=== PATIENT | female | born 1935 | race Caucasian/White ===

== ENCOUNTER 2019-09-19 15:51 | Outpatient (CLI) | payer MEDICARE, OTHER, SELFPAY ==
--- NOTE | ~2019-09-19 | XR_ITS ---
XR hip LT 2V w AP pelvis DATE: 09/19/2019 16:43 INDICATION: Low back pain and left hip pain for one week. No known injury. TECHNIQUE: AP pelvis. AP, lateral and crosstable lateral views of left hip. COMPARISON: None FINDINGS: The pubic symphysis and sacroiliac joints are intact. No fracture or bone destruction of th e pelvis is evident. Approximately 9 mm sclerotic lesion of the right ilium is likely a bone island. No suspicious osteolytic or osteoblastic lesions are noted. No fracture, dislocation, avascular necrosis or bone destruction of the left hip. Hip joint spaces ar e symmetric and relatively well preserved. 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 Otherwise moderate osteopenia. 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
== END 2019-09-19 15:52 | disposition home or self-care (01) ==
PROVIDERS: PCP Internal Medicine; Visit Provider Internal Medicine
DX: M85.852 Other specified disorders of bone density and structure, left thigh (principal)
CPT/HCPCS: 73502; 73521; J2704

== ENCOUNTER 2020-03-10 10:39 | Outpatient (CLI) | payer MEDICARE, OTHER, SELFPAY ==
[2020-03-10 11:19] LABS: Alanine Aminotransferase 19 U/L (4-35); Albumin Level 4.4 g/dL (3.5-5.1); Alkaline Phosphatase 93 U/L (38-126); Aspartate Amino Transferase 30 U/L (14-36); Bilirubin,Total 0.6 mg/dL (0.2-1.3); Blood Urea Nitrogen 12 mg/dL (7-17); Calcium 9.5 mg/dL (8.4-10.2); Carbon Dioxide 30 mmol/L (22-30); Chloride 102 mmol/L (98-107); Estimated Glomerular Filt Rate > 60; Glucose 84 mg/dL (65-105); Potassium 3.7 mmol/L (3.4-5.0); Sodium 138 mmol/L (137-145)
== END 2020-03-10 10:40 | disposition home or self-care (01) ==
PROVIDERS: PCP Internal Medicine; Visit Provider Internal Medicine
DX: E03.8 Other specified hypothyroidism (principal); I10 Essential (primary) hypertension
CPT/HCPCS: 36415; 80053; 84443

== ENCOUNTER 2020-09-10 10:13 | Outpatient (CLI) | payer MEDICARE, OTHER, SELFPAY ==
[2020-09-10 11:08] LABS: Cholesterol 238 mg/dL (0-200); HDL Direct 83 mg/dL; Magnesium 2.4 mg/dL (1.6-2.3); Triglycerides 108 mg/dL (<150)
[2020-09-10 11:19] LABS: LDL Cholesterol Direct 128 mg/dL
[2020-09-10 11:46] LABS: Vitamin D 25 Hydroxy 27.7 ng/mL
== END 2020-09-10 10:14 | disposition home or self-care (01) ==
PROVIDERS: PCP Internal Medicine; Visit Provider Nurse Practitioner
DX: E03.9 Hypothyroidism, unspecified (principal); E55.9 Vitamin D deficiency, unspecified; E78.00 Pure hypercholesterolemia, unspecified; Z51.81 Encounter for therapeutic drug level monitoring
CPT/HCPCS: 36415; 80061; 82306; 83735; 84443

== ENCOUNTER 2021-01-20 15:28 | Outpatient (CLI) | payer MEDICARE, OTHER, SELFPAY ==
[2021-01-20 16:45] LABS: Total Triiodothyronine (T3) 0.93 NG/ML (0.97-1.69)
[2021-01-20 17:28] LABS: Free T4 Free Thyroxine 1.36 ng/mL (0.78-2.19)
== END 2021-01-20 15:29 | disposition home or self-care (01) ==
PROVIDERS: PCP Internal Medicine; Visit Provider Internal Medicine
DX: E03.9 Hypothyroidism, unspecified (principal)
CPT/HCPCS: 36415; 84439; 84443; 84480

== ENCOUNTER 2021-04-06 09:59 | Outpatient (CLI) | payer MEDICARE, OTHER, SELFPAY ==
[2021-04-06 10:49] LABS: Anion Gap 7 mmol/L (8-16); Blood Urea Nitrogen 12 mg/dL (7-17); Calcium 9.6 mg/dL (8.4-10.2); Carbon Dioxide 28 mmol/L (22-30); Chloride 106 mmol/L (98-107); Estimated Glomerular Filt Rate > 60; Glucose 93 mg/dL (65-105); Potassium 3.5 mmol/L (3.4-5.0); Sodium 141 mmol/L (137-145)
[2021-04-06 11:18] LABS: Thyroid Stimulating Hormone 0.662 uIU/mL (0.465-4.680)
[2021-04-06 11:51] LABS: Vitamin D 25 Hydroxy 37.3 ng/mL
== END 2021-04-06 10:00 | disposition home or self-care (01) ==
LOC: ANHLAB 10:03
PROVIDERS: PCP Internal Medicine; Visit Provider Internal Medicine
DX: E03.9 Hypothyroidism, unspecified (principal); I10 Essential (primary) hypertension; E55.9 Vitamin D deficiency, unspecified
CPT/HCPCS: 36415; 80048; 82306; 84443

== ENCOUNTER 2021-09-22 09:34 | Outpatient (CLI) | payer MEDICARE, OTHER, SELFPAY ==
--- NOTE | ~2021-09-22 | MM_ITS ---
EXAMINATION: MM screening hieu BI w iggy HISTORY: Screening mammogram TECHNIQUE: Craniocaudal and mediolateral oblique 3-D tomosynthesis images were obtained and synthetic 2-D images were generated. CAD analysis was submitted and interpreted. COMPARISON: [id number], 08/16/2017, 08/15/2016 BREAST PARENCHYMAL COMPOSITION: The breasts are heterogeneously dense, which may obscure small masses . FINDINGS: Scattered benign-appearing calcifications are present. There is no evidence of suspicious m ass, calcification, or architectural distortion to suggest malignancy in either breast. There has bee n no suspicious interval change. IMPRESSION: 1. No mammographic evidence of malignancy. 2. Recommend routine screening mammography while the patient remains in good health. BI-RADS Category 2: Benign finding(s). Reviewed, dictated and finalized at location A. NT COORDINATOR IMPRESSION: 1. No mammographic evidence of malignancy. 2. Recommend routine screening mammography while the patient remains in good he alth. BI-RADS Category 2: Benign finding(s).
== END 2021-09-22 09:35 | disposition home or self-care (01) ==
LOC: ANHIMG 09:38
PROVIDERS: PCP Internal Medicine; Visit Provider Internal Medicine
DX: Z12.31 Encounter for screening mammogram for malignant neoplasm of breast (principal)
CPT/HCPCS: 77063; 77067

== ENCOUNTER 2021-11-08 10:08 | Outpatient (CLI) | payer MEDICARE, OTHER, SELFPAY ==
[2021-11-08 10:54] LABS: Alanine Aminotransferase 17 U/L (4-35); Albumin Level 4.6 g/dL (3.5-5.1); Alkaline Phosphatase 126 U/L (38-126); Anion Gap 9 mmol/L (8-16); Aspartate Amino Transferase 28 U/L (14-36); Bilirubin,Total 0.7 mg/dL (0.2-1.3); Blood Urea Nitrogen 12 mg/dL (7-17); Calcium 9.5 mg/dL (8.4-10.2); Carbon Dioxide 29 mmol/L (22-30); Chloride 100 mmol/L (98-107); Cholesterol 238 mg/dL (0-200); Estimated Glomerular Filt Rate > 60; Glucose 106 mg/dL (65-110); HDL Direct 90 mg/dL; Potassium 3.6 mmol/L (3.4-5.0); Sodium 138 mmol/L (137-145); Triglycerides 123 mg/dL (<150)
[2021-11-08 11:05] LABS: LDL Cholesterol Direct 118 mg/dL
[2021-11-08 11:21] LABS: Total Triiodothyronine (T3) 1.05 NG/ML (0.97-1.69)
[2021-11-08 11:43] LABS: Free T4 Free Thyroxine 1.67 ng/mL (0.78-2.19); Vitamin D 25 Hydroxy 34.3 ng/mL
== END 2021-11-08 10:09 | disposition home or self-care (01) ==
PROVIDERS: PCP Internal Medicine; Visit Provider Nurse Practitioner
DX: E03.9 Hypothyroidism, unspecified (principal); F32.9 Major depressive disorder, single episode, unspecified; E55.9 Vitamin D deficiency, unspecified; E78.00 Pure hypercholesterolemia, unspecified
CPT/HCPCS: 36415; 80053; 80061; 82306; 84439; 84443; 84480

== ENCOUNTER 2021-11-30 15:05 | Outpatient (CLI) | payer MEDICARE, OTHER, SELFPAY ==
--- NOTE | ~2021-11-30 | XR_ITS ---
XR chest 2V DATE: 11/30/2021 15:27 INDICATION: Dry cough for 3 months TECHNIQUE: 2 views COMPARISON: None FINDINGS: There is cardiomegaly. No hilar or mediastinal enlargement. There is bilateral pulmonary hyperinflation. No pulmonary infiltrate or consolidation, pulmonary vas cular congestion, pleural effusion or pneumothorax. There is dextroscoliosis of the thoracic spine. Diffuse osteopenia. IMPRESSION: Bilateral hyperinflation Cardiomegaly Osteopenia, scoliosis Reviewed, dictated and finalized at location B. NG COORDINATOR
== END 2021-11-30 15:06 | disposition home or self-care (01) ==
LOC: ANHIMG 15:11
PROVIDERS: PCP Internal Medicine; Visit Provider Internal Medicine
DX: R05.9 Cough, unspecified (principal); R91.8 Other nonspecific abnormal finding of lung field; I51.7 Cardiomegaly; M85.88 Other specified disorders of bone density and structure, other site; M41.9 Scoliosis, unspecified
CPT/HCPCS: 71046

== ENCOUNTER 2022-06-03 10:35 | Outpatient (CLI) | payer MEDICARE, OTHER, SELFPAY ==
[2022-06-03 11:51] LABS: Alanine Aminotransferase 20 U/L (6-35); Albumin Level 4.6 g/dL (3.5-5.1); Alkaline Phosphatase 108 U/L (38-126); Anion Gap 10 mmol/L (8-16); Aspartate Amino Transferase 30 U/L (14-36); Bilirubin,Total 0.5 mg/dL (0.2-1.3); Blood Urea Nitrogen 14 mg/dL (7-17); Calcium 9.6 mg/dL (8.4-10.2); Carbon Dioxide 28 mmol/L (22-30); Chloride 100 mmol/L (98-107); Estimated Glomerular Filt Rate > 60; Glucose 91 mg/dL (65-110); Potassium 3.4 mmol/L (3.4-5.0); Sodium 138 mmol/L (137-145)
[2022-06-03 12:20] LABS: Thyroid Stimulating Hormone 0.164 uIU/mL (0.465-4.680)
[2022-06-03 12:29] LABS: Vitamin D 25 Hydroxy 42.9 ng/mL
== END 2022-06-03 10:36 | disposition home or self-care (01) ==
LOC: ANHLAB 10:38
PROVIDERS: PCP Internal Medicine; Visit Provider Internal Medicine
DX: R00.2 Palpitations (principal); I10 Essential (primary) hypertension; E55.9 Vitamin D deficiency, unspecified; E03.9 Hypothyroidism, unspecified
CPT/HCPCS: 36415; 80053; 82306; 84443

== ENCOUNTER 2022-12-12 13:55 | Outpatient (CLI) | payer MEDICARE, OTHER, SELFPAY ==
[2022-12-12 15:34] LABS: Alanine Aminotransferase 20 U/L (6-35); Albumin Level 4.4 g/dL (3.5-5.1); Alkaline Phosphatase 106 U/L (38-126); Anion Gap 5 mmol/L (8-16); Aspartate Amino Transferase 46 U/L (14-36); Bilirubin,Total 0.6 mg/dL (0.2-1.3); Blood Urea Nitrogen 14 mg/dL (7-17); Carbon Dioxide 30 mmol/L (22-30); Chloride 105 mmol/L (98-107); Estimated Glomerular Filt Rate > 60; Glucose 102 mg/dL (65-110); Potassium 3.5 mmol/L (3.4-5.0); Sodium 140 mmol/L (137-145)
[2022-12-12 16:06] LABS: Thyroid Stimulating Hormone 0.337 uIU/mL (0.465-4.680)
== END 2022-12-12 13:56 | disposition home or self-care (01) ==
LOC: ANHWCLAB 13:57
PROVIDERS: PCP Internal Medicine; Visit Provider Nurse Practitioner
DX: E78.5 Hyperlipidemia, unspecified (principal); E03.9 Hypothyroidism, unspecified
CPT/HCPCS: 36415; 80053; 84439; 84443; 84480

== ENCOUNTER 2023-01-09 09:24 | Outpatient (CLI) | payer MEDICARE, OTHER, SELFPAY ==
--- NOTE | ~2023-01-09 | MM_ITS ---
EXAMINATION: MM screening hieu BI w iggy HISTORY: Screening mammogram TECHNIQUE: Craniocaudal and mediolateral oblique 3-D tomosynthesis images were obtained and synthetic 2-D images were generated. CAD analysis was submitted and interpreted. COMPARISON: 09/18/2021, 08/18/2018, 08/16/2017 bilateral screening mammogram examinations BREAST PARENCHYMAL COMPOSITION: The breasts are heterogeneously dense, which may obscure small masses . FINDINGS: There is no evidence of suspicious mass, calcification, or architectural distortion to sugg est malignancy in either breast. There has been no suspicious interval change. IMPRESSION: 1. No mammographic evidence of malignancy. 2. Recommend routine screening mammography in one year. BI-RADS Category 1: Negative Reviewed, dictated and finalized at location A.
== END 2023-01-09 09:25 | disposition home or self-care (01) ==
LOC: ANHIMG 09:27
PROVIDERS: PCP Internal Medicine; Visit Provider Internal Medicine
DX: Z12.31 Encounter for screening mammogram for malignant neoplasm of breast (principal)
CPT/HCPCS: 77063; 77067

== ENCOUNTER 2023-01-26 13:50 | Outpatient (CLI) | payer MEDICARE, OTHER, SELFPAY ==
--- NOTE | ~2023-01-26 | DEXA_ITS ---
Bone Density Report Name: MUNDO FAIRCHILD Age: 87 Sex: Female Ethnicity: White Date of : 1935 Indication: postmenopausal; screening for osteoporosis; height loss; hysterectomy; Referring Provider: ZENAIDA SCOTT Study: Bone densitometry was performed. Exam Date: January 26, 2023 Accession number: [id number] Bone Density: Region BMD T-score Z-score Classification AP Spine(L1, L2) 0.728 -2.3 0.4 Osteopenia Femoral Neck (Left) 0.509 -3.1 -0.5 Osteoporosis Total Hip (Left) 0.609 -2.7 -0.4 Osteoporosis Femoral Neck (Right) 0.556 -2.6 -0.1 Osteoporosis Total Hip (Right) 0.708 -1.9 0.4 Osteopenia Total Hip Mean 0.659 -2.3 0.0 Osteopenia World Health Organization criteria for BMD impression classify patients as: Normal (T-score at or above -1.0), Osteopenia (T-score between -1.0 and -2.5), or Osteoporosis (T-score at or below -2.5). 10-year Fracture Risk: FRAX not reported because: Some T-score for Spine Total or Hip Total or Femoral Neck at or below -2.5 Clinical Information Provided by Patient: Has used the following medications: Vitamin D Has the following medical conditions: Hysterectomy Patient maximum height was 64 Menopause Age: 44 Onset of menses at age 14 Number of children 4 Impression: The patient has osteoporosis, based on the Left Femoral Neck T-score. Discussion: INCREASED RISK OF FRACTURE. BONE DENSITY IS UNDESIRABLY LOW AT ONE OR MORE SKELETAL SITES, CONSISTENT WITH POSTMENOPAUSAL OSTEOPOROSIS. This patient's lowest T-score meets the World Health Organization's (WHO) criteria for osteoporosis at one or more sites (T-score -2.5 or below). In untreated patients, the risk of osteoporotic fracture increases approximately two-fold for each 1.0 SD decrease in T-score. Low bone density is not the only risk factor for fracture; also consider factors such as patient's age, frailty or poor health, risk of falling, risk of injury, previous osteoporotic fracture, family history of osteoporosis, cigarette smoking, low body weight, etc. Not everyone with low bone mineral density has osteoporosis; osteomalacia and other metabolic bone disorders should also be considered. Patients who have osteoporosis should be evaluated for specific diseases and conditions (secondary causes) that may cause or contribute to bone loss. The [place] [employer]ocrinologists (AACE) and National Osteoporosis Foundation (NOF) recommend pharmacologic intervention for all postmenopausal women whose T-score is in this range. The patient should follow a healthful lifestyle (good nutrition with adequate calcium and vitamin D, and appropriate weight-bearing exercise). Follow-Up: Consider a repeat BMD and Vertebral Fracture Assessment (VFA) exam in 2 years or sooner if medically necessary, to reassess
== END 2023-01-26 13:51 | disposition home or self-care (01) ==
PROVIDERS: PCP Internal Medicine; Visit Provider Internal Medicine
DX: M81.0 Age-related osteoporosis without current pathological fracture (principal); M85.88 Other specified disorders of bone density and structure, other site; M85.851 Other specified disorders of bone density and structure, right thigh
CPT/HCPCS: 77080

== ENCOUNTER 2023-06-19 13:44 | Outpatient (CLI) | payer MEDICARE, OTHER, SELFPAY ==
[2023-06-19 18:50] LABS: Thyroid Stimulating Hormone 0.798 uIU/mL (0.465-4.680)
[2023-06-19 19:06] LABS: Free T4 Free Thyroxine 1.68 ng/mL (0.78-2.19)
== END 2023-06-19 13:45 | disposition home or self-care (01) ==
LOC: ANHGOSHLAB 13:47
PROVIDERS: PCP Family Medicine; Visit Provider Nurse Practitioner Family
DX: E03.9 Hypothyroidism, unspecified (principal)
CPT/HCPCS: 36415; 84439; 84443

== ENCOUNTER 2023-10-24 15:05 | Outpatient (CLI) | payer MEDICARE, OTHER, SELFPAY ==
[2023-10-24 19:24] LABS: Alanine Aminotransferase 16 U/L (6-35); Albumin Level 4.1 g/dL (3.5-5.1); Alkaline Phosphatase 98 U/L (38-126); Anion Gap 9 mmol/L (8-16); Aspartate Amino Transferase 38 U/L (14-36); Bilirubin,Total 0.5 mg/dL (0.2-1.3); Blood Urea Nitrogen 21 mg/dL (7-17); Calcium 9.6 mg/dL (8.4-10.2); Carbon Dioxide 27 mmol/L (22-30); Chloride 102 mmol/L (98-107); Cholesterol 217 mg/dL (0-200); Estimated Glomerular Filt Rate > 60; Glucose 95 mg/dL (65-110); HDL Direct 71 mg/dL; Potassium 3.9 mmol/L (3.4-5.0); Sodium 138 mmol/L (137-145); Triglycerides 197 mg/dL (<150)
[2023-10-24 19:32] LABS: Basophils Percent Auto 0.6 % (0.2-1.2); Eosinophils Absolute Auto 0.1 K/mm3 (0-0.3); Eosinophils Percent Auto 1.9 % (0-4.4); Hematocrit 40.9 % (37.0-47.0); Hemoglobin 13.4 g/dL (12.0-15.0); Immature Granulocyte Absolute 0.02 K/mm3 (0.00-0.031); Immature Granulocyte Percent A 0.3 % (0-0.5); Lymphocytes Absolute Auto 1.58 K/mm3 (0.9-3.2); Lymphocytes Percent Auto 24.6 % (18.3-44.2); Mean Corpuscular HGB Conc 32.8 g/dl (32-36); Mean Corpuscular Hemoglobin 32.5 pg (26-34); Mean Corpuscular Volume 99.3 fl (80-100); Mean Platelet Volume 9.9 fl (7.4-10.4); Monocytes Absolute Auto 0.7 K/mm3 (0.1-0.6); Monocytes Percent Auto 11.5 % (2.6-8.5); Neutrophils Absolute Auto 3.9 K/mm3 (1.3-6.7); Neutrophils Percent Auto 61.1 % (45.5-73.1); Platelet Count Result 276 k/mm3 (150-375); Red Blood Count 4.12 M/mm3 (4.2-5.4); Red Cell Distribution Width 13.2 % (11.5-14.5); White Blood Count 6.4 K/mm3 (4.5-10.0)
[2023-10-24 19:35] LABS: LDL Cholesterol Direct 101 mg/dL
[2023-10-24 19:45] LABS: Free T4 Free Thyroxine 1.67 ng/mL (0.78-2.19); Vitamin D 25 Hydroxy 25.8 ng/mL
== END 2023-10-24 15:06 | disposition home or self-care (01) ==
LOC: ANHGOSHLAB 15:08
PROVIDERS: PCP Family Medicine; Visit Provider Nurse Practitioner Family
DX: E03.9 Hypothyroidism, unspecified (principal); E55.9 Vitamin D deficiency, unspecified; Z13.0 Encounter for screening for diseases of the blood and blood-forming organs and certain disorders involving the immune mechanism; E78.00 Pure hypercholesterolemia, unspecified; I10 Essential (primary) hypertension
CPT/HCPCS: 36415; 80053; 80061; 82306; 84439; 84443; 85025

== ENCOUNTER 2024-01-18 08:25 | Outpatient (CLI) | payer MEDICARE, OTHER, SELFPAY ==
--- NOTE | ~2024-01-18 | MM_ITS ---
EXAMINATION: MM screening hieu BI w iggy HISTORY: Screening TECHNIQUE: Craniocaudal and mediolateral oblique 3-D tomosynthesis images were obtained and synthetic 2-D images were generated. CAD analysis was submitted and interpreted. COMPARISON: Comparison to multiple prior studies sequentially, with oldest reviewed study dated 07/30. BREAST PARENCHYMAL COMPOSITION: Dense: The breasts are heterogeneously dense, which may obscure small masses FINDINGS: There are focal asymmetries located medially and laterally in the left breast on CC view. T here is no mammographic evidence for malignancy in the right breast. IMPRESSION: 1. Focal left breast asymmetries. 2. Additional mammographic views and possible breast ultrasound are recommended. BI-RADS Category 0: Incomplete: Needs additional imaging evaluation. Reviewed, dictated and finalized at location A. IMPRESSION: 1. Focal left breast asymmetries. 2. Additional mammographic views and possible breast ultrasound are recommended . BI-RADS Category 0: Incomplete: Needs additional imaging evaluation.
== END 2024-01-18 08:26 | disposition home or self-care (01) ==
PROVIDERS: PCP Nurse Practitioner Family; Visit Provider Nurse Practitioner Family
DX: Z12.31 Encounter for screening mammogram for malignant neoplasm of breast (principal); R92.8 Other abnormal and inconclusive findings on diagnostic imaging of breast
CPT/HCPCS: 77063; 77067

== ENCOUNTER 2024-03-05 10:20 | Outpatient (CLI) | payer MEDICARE, OTHER, SELFPAY ==
--- NOTE | ~2024-03-05 | MMUS_ITS ---
EXAMINATION: MM diagnostic hieu LT w iggy, US breast LT complete HISTORY: Focal left mammographic asymmetries reported on 01/18/2024 screening mammogram examination TECHNIQUE: Additional 3-D tomosynthesis images of the left breast were performed and synthetic 2-D im ages were generated. CAD analysis was submitted and interpreted. High resolution complete left breast ultrasound examination including all 4 quadrants and subareolar area was performed. COMPARISON: 01/18/2024 bilateral screening mammogram 09/22/2021 bilateral screening mammogram FINDINGS: MAMMOGRAPHIC FINDINGS: No suspicious mass, architectural distortion, malignant calcification, skin thickening or retraction or significant new finding is noted since 09/22/2021. ULTRASOUND: No suspicious mass or suspicious shadowing is detected. No significant abnormal vascularity. IMPRESSION: 1. No evidence of malignancy 2. Routine annual mammographic screening is recommended BI-RADS Category 1: Negative Reviewed, dictated and finalized at location B. IMPRESSION: 1. No evidence of malignancy 2. Routine annual mammographic screening is recommended BI-RADS Category 1: Negative
== END 2024-03-05 10:21 | disposition home or self-care (01) ==
PROVIDERS: PCP Nurse Practitioner Family; Visit Provider Nurse Practitioner Family
DX: R92.8 Other abnormal and inconclusive findings on diagnostic imaging of breast (principal)
CPT/HCPCS: 76641; 77061; 77065; G0279

== ENCOUNTER 2024-04-11 10:25 | Outpatient (CLI) | payer MEDICARE, OTHER, SELFPAY ==
[2024-04-11 14:30] LABS: Basophils Absolute Auto 0.1 K/mm3 (0.0-0.1); Eosinophils Absolute Auto 0.2 K/mm3 (0-0.3); Eosinophils Percent Auto 4.7 % (0-4.4); Hemoglobin 14.3 g/dL (12.0-15.0); Immature Granulocyte Absolute 0.01 K/mm3 (0.00-0.031); Immature Granulocyte Percent A 0.2 % (0-0.5); Lymphocytes Absolute Auto 1.37 K/mm3 (0.9-3.2); Lymphocytes Percent Auto 26.6 % (18.3-44.2); Mean Corpuscular HGB Conc 33.3 g/dl (32-36); Mean Corpuscular Hemoglobin 32.6 pg (26-34); Mean Corpuscular Volume 97.9 fl (80-100); Mean Platelet Volume 9.9 fl (7.4-10.4); Monocytes Absolute Auto 0.5 K/mm3 (0.1-0.6); Monocytes Percent Auto 9.7 % (2.6-8.5); Neutrophils Percent Auto 57.8 % (45.5-73.1); Platelet Count Result 269 k/mm3 (150-375); Red Blood Count 4.39 M/mm3 (4.2-5.4); Red Cell Distribution Width 13.5 % (11.5-14.5); White Blood Count 5.2 K/mm3 (4.5-10.0)
[2024-04-11 16:30] LABS: Alanine Aminotransferase 16 U/L (6-35); Albumin Level 4.7 g/dL (3.5-5.1); Alkaline Phosphatase 86 U/L (38-126); Anion Gap 8 mmol/L (4-12); Aspartate Amino Transferase 60 U/L (14-36); Bilirubin,Total 0.7 mg/dL (0.2-1.3); Blood Urea Nitrogen 16 mg/dL (7-17); Calcium 9.8 mg/dL (8.4-10.2); Carbon Dioxide 30 mmol/L (22-30); Chloride 102 mmol/L (98-107); Cholesterol 217 mg/dL (0-200); Estimated Glomerular Filt Rate > 60; Glucose 96 mg/dL (65-110); HDL Direct 83 mg/dL; Potassium 3.9 mmol/L (3.4-5.0); Sodium 140 mmol/L (137-145); Triglycerides 136 mg/dL (<150)
[2024-04-11 16:40] LABS: LDL Cholesterol Direct 99 mg/dL
[2024-04-11 18:23] LABS: Iron 188 ug/dL (37-170)
[2024-04-11 18:32] LABS: Percent Iron Saturation 58 % (20-50)
[2024-04-11 20:27] LABS: Vitamin D 25 Hydroxy 31.7 ng/mL
== END 2024-04-11 10:26 | disposition home or self-care (01) ==
PROVIDERS: PCP Nurse Practitioner Family; Visit Provider Nurse Practitioner Family
DX: E03.9 Hypothyroidism, unspecified (principal); E55.9 Vitamin D deficiency, unspecified; E78.00 Pure hypercholesterolemia, unspecified; F32.4 Major depressive disorder, single episode, in partial remission; G43.909 Migraine, unspecified, not intractable, without status migrainosus; M54.9 Dorsalgia, unspecified; L81.9 Disorder of pigmentation, unspecified; R53.83 Other fatigue; Z13.0 Encounter for screening for diseases of the blood and blood-forming organs and certain disorders involving the immune mechanism; Z13.21 Encounter for screening for nutritional disorder; I10 Essential (primary) hypertension
CPT/HCPCS: 36415; 80053; 80061; 82306; 82607; 82728; 83540; 83550; 84443; 85025

== ENCOUNTER 2024-04-19 14:25 | Outpatient (CLI) | payer MEDICARE, OTHER, SELFPAY ==
--- NOTE | ~2024-04-19 | XR_ITS ---
XR lumbar spine 2-3V DATE: 04/19/2024 14:43 INDICATION: Low back pain TECHNIQUE: Standing AP, lateral, cone-down lateral lumbosacral views COMPARISON: None FINDINGS: Diffuse osteopenia. There is 47 degrees rotatory levoscoliosis measured from L1 to L4. There is multilevel degenerative disc disease, moderate to moderately severe at L1-2, L2-3 and very s evere at L3-4, L4-5, moderately severe L5-S1. No fracture or bone destruction is evident. Normal alignment at the sacroiliac joints. IMPRESSION: Osteopenia 47 degrees rotatory levoscoliosis Multilevel degenerative disc disease, particularly severe at L3-4, L4-5, L5-S1 Reviewed, dictated and finalized at location A.
== END 2024-04-19 14:26 ==
PROVIDERS: PCP Nurse Practitioner Family; Visit Provider Nurse Practitioner Family
DX: M51.36 Other intervertebral disc degeneration, lumbar region (principal); M51.37 Other intervertebral disc degeneration, lumbosacral region
CPT/HCPCS: 72100

== ENCOUNTER 2024-05-18 03:21 | Inpatient (IN) | payer MEDICARE, OTHER, SELFPAY ==
[2024-05-18] VITALS (24 sets, daily range): BP systolic 90–141; BP diastolic 41–99; PULSE 53–87; RESP 13–24; TEMP 36.3–37.3; O2SAT 92–100; BMI 23.9
--- NOTE | ~2024-05-18 | CT_ITS ---
EXAMINATION: CT abdomen pelvis w con DATE: 05/18/2024 05:40 INDICATION: Right-sided flank pain. Nausea and vomiting. TECHNIQUE: Computed tomography (CT) of the abdomen and pelvis was performed with 100 cc Omnipaque 350 intravenous contrast. The dose-length product was 227.44 mGy-cm. Automated exposure control and iter ative reconstruction technique were employed. COMPARISON: CT dated 08/19/2014 FINDINGS: There is dependent atelectasis. Borderline heart size. No significant pleural or pericardia l effusion. The liver, spleen, pancreas, right adrenal gland are unremarkable. There is a heterogeneo usly enhancing 2.6 x 1.7 cm left adrenal mass which does not appear significantly changed in size com pared with prior CT, likely benign adenoma. There is a small low-density lesion in the left kidney, m ost likely benign cyst. There are stones in the right renal collecting system with gas within the meggan al pelvis and urothelial thickening. There is intraluminal gas in the bladder, possibly from recent i nstrumentation. There is a nonobstructing right nephrolithiasis. The liver, spleen, pancreas are unremarkable. Gallbladder is present. Nonobstructive bowel gas patter n. No significant vascular abnormality. No lymphadenopathy. There is abnormal enlargement of the sacr al foramen which appears chronic. Consider correlation with MRI of the lumbar spine/sacrum without an d with contrast. Severe lumbar spondylosis with scoliosis. IMPRESSION: 1. Stones in the right renal pelvis with gas in the pelvis and urothelial thickening. Findings findin gs suspicious for pyelitis/pyelonephritis. Clinically correlate. 2: Nonobstructing right nephrolithiasis. 3: Intraluminal gas in the bladder. Correlate for history of recent instrumentation. Reviewed, dictated and finalized at location B. IMPRESSION: 1. Stones in the right renal pelvis with gas in the pelvis and urothelial thick ening. Findings findings suspicious for pyelitis/pyelonephritis. Clinically cor relate. 2: Nonobstructing right nephrolithiasis. 3: Intraluminal gas in the bladder. Correlate for history of recent instrument ation.
--- NOTE | ~2024-05-18 | XR_ITS ---
EXAMINATION: XR abdomen/kub 1V DATE: 05/19/2024 13:54 INDICATION: Right renal calculus post stent placement TECHNIQUE: A supine view of the abdomen was obtained. COMPARISON: 05/18/2024 FINDINGS: Interval placement of a right internal stent which is in expected position with loops formed in the b ladder and in the right renal pelvis surrounding a pair of 5-6 mm right renal stones. There are coupl e phleboliths in the left hemipelvis. No other evident nephrolithiasis. Normal bowel gas pattern. Pro minent bone island in the right innominate bone. Lumbar levorotoscoliosis with severe spondylosis. IMPRESSION: 1. Right internal ureteral stent in expected position with loops formed in the right renal pelvis and in the bladder. 2. A couple 5-6 mm stones encircled by the proximal loop of the stent in the right renal pelvis. Reviewed, dictated and finalized at location A. IMPRESSION: 1. Right internal ureteral stent in expected position with loops formed in the right renal pelvis and in the bladder. 2. A couple 5-6 mm stones encircled by the proximal loop of the stent in the ri ght renal pelvis.
--- NOTE | ~2024-05-18 | XR_ITS ---
EXAMINATION: XR stent kub - surgery DATE: 05/18/2024 10:30 INDICATION: Right internal ureteral stent placement TECHNIQUE: Fluoroscopic images from a right internal ureteral stent placement are submitted for marian lopez 17 seconds of fluoroscopy time. FINDINGS: There is a right double-J internal ureteral stent projecting in expected position, with proximal [place] loop at the level of the renal pelvis. The distal loop is not visualized.. IMPRESSION: 1. Right internal ureteral stent placement. Please refer to real-time procedural findings for blaine hong. Reviewed, dictated and finalized at location B. IMPRESSION: 1. Right internal ureteral stent placement. Please refer to real-time procedu ral findings for details.
[2024-05-18 03:47] LABS: Appearance Urine Cloudy (Clear); Bacteria Urine 4+ /hpf; Bilirubin Urine Negative (Negative); Blood Urine 2+ (Negative); Color Urine Yellow (Yellow); Glucose Urine UA Negative (Negative); Ketones Urine Negative (Negative); Leukocyte Esterase Ur 1+ LEU/UL (Negative); Nitrate Urine Positive (Negative); Non Pathogenic Casts 0-2; Protein Urine 1+ mg/dL (Negative); RBC Urine 21-50 /hpf (0-2); Specific Grav Ur 1.012 (1.001-1.035); Squamous Epithelial Cell Urine None Seen /hpf (Few); Urobilinogen Urine 0.2 mg/dL (<2.0); WBC Urine 21-50 /hpf (0-3); pH Urine 7.5 (5.0-9.0)
[2024-05-18 03:50] LABS: Basophils Percent Auto 0.5 % (0.2-1.2); Eosinophils Absolute Auto 0.1 K/mm3 (0-0.3); Eosinophils Percent Auto 1.4 % (0-4.4); Hematocrit 39.4 % (37.0-47.0); Hemoglobin 13.3 g/dL (12.0-15.0); Immature Granulocyte Absolute 0.02 K/mm3 (0.00-0.031); Immature Granulocyte Percent A 0.2 % (0-0.5); Lymphocytes Absolute Auto 0.53 K/mm3 (0.9-3.2); Lymphocytes Percent Auto 6.6 % (18.3-44.2); Mean Corpuscular HGB Conc 33.8 g/dl (32-36); Mean Corpuscular Volume 97.8 fl (80-100); Mean Platelet Volume 9.5 fl (7.4-10.4); Monocytes Absolute Auto 0.1 K/mm3 (0.1-0.6); Monocytes Percent Auto 0.7 % (2.6-8.5); Neutrophils Absolute Auto 7.3 K/mm3 (1.3-6.7); Neutrophils Percent Auto 90.6 % (45.5-73.1); Platelet Count Result 216 k/mm3 (150-375); Red Blood Count 4.03 M/mm3 (4.2-5.4); Red Cell Distribution Width 13.3 % (11.5-14.5)
[2024-05-18 03:55] LABS: Add Urine Microscopic? YES
[2024-05-18 04:03] LABS: Alanine Aminotransferase 16 U/L (6-35); Albumin Level 4.4 g/dL (3.5-5.1); Alkaline Phosphatase 101 U/L (38-126); Anion Gap 9 mmol/L (4-12); Aspartate Amino Transferase 30 U/L (14-36); Bilirubin,Total 0.7 mg/dL (0.2-1.3); Blood Urea Nitrogen 24 mg/dL (7-17); Calcium 9.2 mg/dL (8.4-10.2); Carbon Dioxide 30 mmol/L (22-30); Chloride 100 mmol/L (98-107); Estimated CRCL calculation 50 ml/min; Estimated Glomerular Filt Rate > 60; Glucose 117 mg/dL (65-110); Lipase 92 U/L (23-300); Potassium 3.5 mmol/L (3.4-5.0); Sodium 139 mmol/L (137-145)
--- NOTE | 2024-05-18 06:10 | ED.GENADULT ---
HPI - General Adult General Chief complaint: Nausea/Vomiting/Diarrhea Stated complaint: N/V X 1.5 HOURS Time Seen by Provider: 05/18/24 03:59 History of Present Illness HPI narrative: This is an 89-year-old female presenting ED with a chief complaint of nausea vomiting and right flank pain. Symptoms started 2 hours prior to arrival. Woke her from sleep. She describes as achy pain in her right flank into her right hip. She had multiple episodes nausea and vomiting with chills. She denies fevers chest pain abdominal pain. Related Data Home Medications Medication Instructions Recorded Confirmed cod liver oil 1 cap PO BID 10/12/20 04/18/24 magnesium L-lactate 84 mg 84 mg PO BID 10/12/20 04/18/24 tablet,extended release L.acidoph, paracasei,B. lactis 10 cell PO 04/20/23 04/18/24 billion cell capsule (Digestive Advantage Advanced Probiotic) acetaminophen 650 mg 650 mg PO Q12H 04/20/23 04/18/24 tablet,extended release (Arthritis Pain Relief (acetaminophen) ER) herbal drugs (Super Energy Herbal tablet PO 04/20/23 04/18/24 Complex tablet) turmeric 100 mg-yanick 150 cap PO 04/20/23 04/18/24 mg-olive 50 mg-oreg 150 mg-capryl capsule vit A 12,500 unit-zinc 12.5 cap PO 04/20/23 04/18/24 vv-medvez-jzzee-bilberry-herb #261 capsule (Lipotriad Vision Support) vit A-vit C-zinc-herb comp 15 mirian PO 04/20/23 04/18/24 lozenges Allergies Allergy/AdvReac Type Severity Reaction Status Date / Time codeine Allergy Unknown Nausea and Verified 04/18/24 12:53 Vomiting Sulfa (Sulfonamide Allergy Unknown Rash Verified 04/18/24 12:53 Antibiotics) PMFSH Past Medical History Medical History Cervicalgia Chronic rhinitis COVID-19 Essential (primary) hypertension Hypothyroidism, unspecified Major depress, part remis Migraine, unspecified, not intractable, without status migrainosus Osteoarthritis of 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 Palpitations Pure hypercholesterolemia Vitamin D deficiency Family History Family History Sibling Family history of throat cancer Patient's brother is Carcinoma of colon Mother Patient's mother is Family history of congenital heart disease Carcinoma of colon Acute myocardial infarction Father Patient's father is Hypertension Family history of congenital heart disease Acute myocardial infarction Other Family history of cardiovascular disease Social History Social History Smoking status: Never smoker Second hand tobacco smoke exposure: Yes Alcohol intake: never Substance use: never Substance use type: does not use Lack of Transportation: No Lack of Food: Never True Current Housing: I Have Housing Concerned About Future Housing: No Difficulty Paying Gas/Electric Bills: No Difficulty Paying for Meds: No Currently Unemployed: No Difficulty w/ Childcare or Family Care: No Exam Narrative: APPEARANCE: No apparent distress. Head: atraumatic. EYES: EOMI, NOSE: Atraumatic NECK: Trachea midline RESPIRATORY: No increased rate of breathing CTAB CARDIOVASCULAR: RRR, ABDOMINAL: Abdomen is soft nontender no guarding rebound, no CVA tenderness MUSCULOSKELETAl: No obvious deformities NEURO: Alert. Moving 4/4 extremities SKIN:: Warm, dry. Normal color PSYCHIATRIC: Normal affect Course Vital Signs Vital signs: Vital Signs Temperature 97.8 F 05/18/24 03:27 Pulse Rate 65 05/18/24 03:27 Respiratory Rate 16 05/18/24 03:27 Blood Pressure 141/67 H 05/18/24 03:27 Pulse Oximetry 97 05/18/24 03:27 Oxygen Delivery Room Air 05/18/24 03:27 Temperature 97.8 F 05/18/24 03:27 Pulse Rate 82 05/18/24 06:06 Respiratory Rate 20 05/18/24 06:06 Blood Pressure 113/99 H 05/18/24 06:06 Pulse Oxim
[2024-05-18] MEDS: SODIUM CHLORIDE 0.9% IV 2,000 ML 999 ML IV CONT (06:33)
--- NOTE | 2024-05-18 07:41 | WPDURCON ---
Assessment and Plan Assessment and plan (1) Stone in renal pelvis: Code(s): N20.0 - Calculus of kidney Status: Acute Assessment and Plan: Given her urinary tract infection as well as pyelonephritis with gas in the collecting system will plan on cysto with right stent placement and retrograde pyelogram. The stone will be addressed at a later point time (2) Acute pyelonephritis: Code(s): N10 - Acute pyelonephritis Status: Acute Assessment and Plan: Cultures obtained. Will be treated appropriately with culture specific antibiotics and then deal with the stone at another time. Urology Consult Note HPI Date Seen: 05/18/24 Time Seen: 07:41 Requesting Physician: Toyin Caballero DO Primary Care Provider: Tahira Shabazz APRN Consult Narrative Reason for consult: Right pyelonephritis with calculus Narrative: Deja Foote is a 89 year old female who presented with nausea vomiting and some right flank pain. Evaluation in the emergency room revealed a urinary tract infection along with gas in the right collecting system with stones in the right renal pelvis. She does have a history of stones which she had passed. Denied any fevers at home. 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 Palpitations Pure hypercholesterolemia Vitamin D deficiency Family History Family History Sibling Family history of throat cancer Patient's brother is Carcinoma of colon Mother Patient's mother is Family history of congenital heart disease Carcinoma of colon Acute myocardial infarction Father Patient's father is Hypertension Family history of congenital heart disease Acute myocardial infarction Other Family history of cardiovascular disease Social History Social History Smoking status: Never smoker Second hand tobacco smoke exposure: Yes Alcohol intake: never Substance use: never Substance use type: does not use Lack of Transportation: No Lack of Food: Never True Current Housing: I Have Housing Concerned About Future Housing: No Difficulty Paying Gas/Electric Bills: No Difficulty Paying for Meds: No Currently Unemployed: No Difficulty w/ Childcare or Family Care: No Meds Home Medications and Allergies Home Medications Medication Instructions Recorded Confirmed Type cod liver oil 1 cap PO BID 10/12/20 04/18/24 History magnesium L-lactate 84 mg 84 mg PO BID 10/12/20 04/18/24 History tablet,extended release L.acidoph, paracasei,B. lactis 10 cell PO 04/20/23 04/18/24 History billion cell capsule (Digestive Advantage Advanced Probiotic) acetaminophen 650 mg 650 mg PO Q12H 04/20/23 04/18/24 History tablet,extended release (Arthritis Pain Relief (acetaminophen) ER) herbal drugs (Super Energy Herbal tablet PO 04/20/23 04/18/24 History Complex tablet) turmeric 100 mg-yanick 150 cap PO 04/20/23 04/18/24 History mg-olive 50 mg-oreg 150 mg-capryl capsule vit A 12,500 unit-zinc 12.5 cap PO 04/20/23 04/18/24 History yd-nklpvb-llvnt-bilberry-herb #261 capsule (Lipotriad Vision Support) vit A-vit C-zinc-herb comp 15 mirian PO 04/20/23 04/18/24 History lozenges ergocalciferol (vitamin D2) 1,250 50,000 unit PO MONTHLY #3 caps 12/07/23 04/18/24 Rx mcg (50,000 unit) capsule escitalopram oxalate 10 mg tablet 10 mg PO DAILY #90 tabs 03/07/24 0
--- NOTE | 2024-05-18 08:54 | PM.IMHP ---
H&P: HPI History of Present Illness Date/Time: 05/18/24 1300 Chief Complaint: n/v/d Narrative: 89-year-old female with PMH/o chronic rhinitis, HTN presenting ED with a chief complaint of nausea vomiting and right flank pain. Symptoms started overnight- achy pain in her right flank into her right hip. She had multiple episodes nausea and vomiting with chills. She denies fevers chest pain abdominal pain. Evaluation in the emergency room revealed a urinary tract infection along with gas in the right collecting system with stones in the right renal pelvis. She does have a history of stones which she had passed on her own. Plan on cysto with right stent placement and retrograde pyelogram for 05/18. Pt is seen and examined at the bedside- still a little built drowsy but appropriate, calm, no n/v/d, eating lunch, no pain. She is full code. Meds and history reviewed. Pt doesnot smoke, drinks. Had open heart surgery in 1962-was doing well for a while but then started having palpitations- taht is why she was started on metoprolol- which controlled her palpitations well. She is taking thyroid medication, lexapro- states she no longer depressed - will address it with her PCP upon discharge Review of Systems Constitutional: Constitutional: Denies chills Eyes: Eyes: Denies photophobia ENT: Reports Normal hearing present [facility] Past Medical History Medical History Cervicalgia Chronic rhinitis COVID-19 Essential (primary) hypertension Hypothyroidism, unspecified Major depress, part remis Migraine, unspecified, not intractable, without status migrainosus Osteoarthritis of 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 Palpitations Pure hypercholesterolemia Vitamin D deficiency Family History Family History Sibling Family history of throat cancer Patient's brother is Carcinoma of colon Mother Patient's mother is Family history of congenital heart disease Carcinoma of colon Acute myocardial infarction Father Patient's father is Hypertension Family history of congenital heart disease Acute myocardial infarction Other Family history of cardiovascular disease Social History Social History Smoking status: Never smoker Second hand tobacco smoke exposure: Yes Alcohol intake: never Substance use: never Substance use type: does not use Do You Feel Safe in your Home?: No Lack of Transportation: No Lack of Food: Never True Current Housing: I Have Housing Concerned About Future Housing: No Difficulty Paying Gas/Electric Bills: No Difficulty Paying for Meds: No Currently Unemployed: No Education: Associate Degree Difficulty w/ Childcare or Family Care: No Spiritual care concerns: No Meds Home Medications and Allergies Home Medications Medication Instructions Recorded Confirmed Type cod liver oil 1 cap PO BID 10/12/20 05/18/24 History magnesium L-lactate 84 mg 84 mg PO BID 10/12/20 05/18/24 History tablet,extended release L.acidoph, paracasei,B. lactis 10 1 cell PO DAILY 04/20/23 05/18/24 History billion cell capsule (Digestive Advantage Advanced Probiotic) acetaminophen 650 mg 650 mg PO Q12H PRN Pain 04/20/23 05/18/24 History tablet,extended release (Arthritis Pain Relief (acetaminophen) ER) herbal drugs (Super Energy Herbal 1 tablet PO AC 04/20/23 05/18/24 History Complex tablet) turmeric 100 mg-yanick 150 2 cap PO DAILY 04/20/23 05/18/24 History mg-olive 50 mg-oreg 150 mg-capryl capsule vit A 12,500 unit-zinc 12.5 1 cap PO DAILY 04/20/23 05/18/24 History jf-pxvwsx-opbkb-bilberry-herb #261 capsule (Lipotriad Vision Support) vit A-vit C-zinc-herb comp 15 1 mirian PO DAILY 04/20/23 05/18/24 History lozenges ergocalciferol (vitamin D2)
--- NOTE | 2024-05-18 09:07 | WPDANESEPPF ---
Anes - Initial Pre Proc Eval Procedure: Operation Date: 05/18/24 10:30 Proposed Procedures p Cystoscopy, Right Retrograde Pyelogram, Right Stent Placement(Right) - Bridger Cleary MD Date/Time: 05/18/24 09:07 Surgeon: Toyin Caballero DO Pre Op Diagnosis: Pyelonephritis/Renal Stone Patient Data Age: 89 Gender: F Height: 1.57 m Weight: 54.55 kg Last Vital Signs Temp 37.0 C 05/18/24 08:47 Pulse 87 05/18/24 08:47 Resp 24 H 05/18/24 08:47 BP 112/58 L 05/18/24 08:47 Pulse Ox 94 05/18/24 08:47 O2 Del Method Room Air 05/18/24 03:27 Allergies Allergy/AdvReac Type Severity Reaction Status Date / Time codeine Allergy Unknown Nausea and Verified 04/18/24 12:53 Vomiting Sulfa (Sulfonamide Allergy Unknown Rash Verified 04/18/24 12:53 Antibiotics) Home Medications Medication Instructions Recorded Confirmed Type cod liver oil 1 cap PO BID 10/12/20 04/18/24 History magnesium L-lactate 84 mg 84 mg PO BID 10/12/20 04/18/24 History tablet,extended release L.acidoph, paracasei,B. lactis 10 cell PO 04/20/23 04/18/24 History billion cell capsule (Digestive Advantage Advanced Probiotic) acetaminophen 650 mg 650 mg PO Q12H 04/20/23 04/18/24 History tablet,extended release (Arthritis Pain Relief (acetaminophen) ER) herbal drugs (Super Energy Herbal tablet PO 04/20/23 04/18/24 History Complex tablet) turmeric 100 mg-yanick 150 cap PO 04/20/23 04/18/24 History mg-olive 50 mg-oreg 150 mg-capryl capsule vit A 12,500 unit-zinc 12.5 cap PO 04/20/23 04/18/24 History wa-fjanao-bmygu-bilberry-herb #261 capsule (Lipotriad Vision Support) vit A-vit C-zinc-herb comp 15 mirian PO 04/20/23 04/18/24 History lozenges ergocalciferol (vitamin D2) 1,250 50,000 unit PO MONTHLY #3 caps 12/07/23 04/18/24 Rx mcg (50,000 unit) capsule escitalopram oxalate 10 mg tablet 10 mg PO DAILY #90 tabs 03/07/24 04/18/24 Rx (Lexapro) levothyroxine 88 mcg capsule See Rx Instructions .Route 05/13/24 Rx (Tirosint) .COMPLEX #90 caps metoprolol succinate 25 mg See Rx Instructions .Route 05/13/24 Rx tablet,extended release 24 hr .COMPLEX #90 tabs Laboratory Tests 05/18/24 05/18/24 03:38 03:45 WBC 8.0 K/mm3 (4.5-10.0) RBC 4.03 L M/mm3 (4.2-5.4) Hgb 13.3 g/dL (12.0-15.0) Hct 39.4 % (37.0-47.0) MCV 97.8 fl (80-100) MCH 33.0 pg (26-34) MCHC 33.8 g/dl (32-36) RDW 13.3 % (11.5-14.5) Plt Count 216 k/mm3 (150-375) MPV 9.5 fl (7.4-10.4) Immature Gran % (Auto) 0.2 % (0-0.5) Neut % (Auto) 90.6 H % (45.5-73.1) Lymph % (Auto) 6.6 L % (18.3-44.2) [place] % (Auto) 0.7 L % (2.6-8.5) Eos % (Auto) 1.4 % (0-4.4) Baso % (Auto) 0.5 % (0.2-1.2) Lymph # (Auto) 0.53 L K/mm3 (0.9-3.2) [place] # (Auto) 0.1 K/mm3 (0.1-0.6) Eos # (Auto) 0.1 K/mm3 (0-0.3) Baso # (Auto) 0.0 K/mm3 (0.0-0.1) Abs Immat Gran (auto) 0.02 K/mm3 (0.00-0.031) Absolute Neuts (auto) 7.3 H K/mm3 (1.3-6.7) Absolute Nucleated RBC 0.000 K/mm3 (0.0-0.012) Nucleated RBC % 0.0 % (0.0-0.2) Sodium 139 mmol/L (137-145) Potassium 3.5 mmol/L (3.4-5.0) Chloride 100 mmol/L (98-107) Carbon Dioxide 30 mmol/L (22-30) Anion Gap 9 mmol/L (4-12) BUN 24 H mg/dL (7-17) Creatinine 0.50 L mg/dL (0.7-1.0) Estim Creat Clear Calc 50 ml/min Estimated GFR > 60 (59 - ) Glucose 117 H mg/dL (65-110) Calcium 9.2 mg/dL (8.4-10.2) Total Bilirubin 0.7 mg/dL (0.2-1.3) AST 30 U/L (14-36) ALT 16 U/L (6-35) Alkaline Phosphatase 101 U/L (38-126) Total Protein 7.0 g/dL (6.3-8.2) Albumin 4.4 g/dL (3.5-5.1) Lipase 92 U/L (23-300) Urine Color Yellow (Yellow) Urine Appearance Cloudy
--- NOTE | 2024-05-18 09:37 | WPDHPUPDATE1 ---
History and Physical Update Update Date/Time: 05/18/24 09:37 History and Physical has been reviewed, including an updated exam of the patient. There are NO changes in the patient's condition. Risks, benefits, and alternatives have been discussed and questions answered. Patient agrees to proceed with procedure. Proceed with cysto, right retrograde, right ureteral stent placement
--- NOTE | 2024-05-18 10:05 | P.OP_ITS ---
Procedure Note - Detailed Date of Procedure 05/18/24 Pre-op Diagnosis Pyelonephritis/Renal Stone Post-op Diagnosis Same Procedure Performed Cystoscopy, right stent placement, Goodrich catheter placement Surgeon Bridger Cleary MD Anesthesia General Description of Procedure Patient is taken to the operative suite correctly identified. Once anesthesia was obtained she was placed in dorsal lithotomy position and prepped and draped usual sterile fashion. Twenty-two [place] scope was inserted the bladder. No tumors noted. There was still contrast in the right collecting system. A Sensor wire was inserted all the way up to the kidney. 4.8 contour stent was then placed with the proximal end coiled in the renal pelvis and the distal in the bladder. 2% viscous lidocaine was inserted into the urethra. Sixteen [place] Goodrich was placed with 10 cc in the balloon. Patient is taken recovery stable condition will most likely remove Goodrich in the morning. The right renal stone will be addressed when she gets over her acute episode. This completes dictation. Please send a copy of op note to my office. Estimated Blood Loss 0 Drains Yes Packing No Pathology None sent Complications No immediate complications Condition Stable Disposition PACU
[2024-05-18] MEDS: LIDOCAINE HCL 2% GEL UROJET 10 ML PKG MUCOUS MEM (10:06)
[2024-05-18] MEDS: METOPROLOL SUCCINATE EXT REL 25 MG TABCR BY MOUTH (14:45)
[2024-05-18] MEDS: ESCITALOPRAM OXALATE 10 MG TABLET PO (14:45)
[2024-05-19] VITALS (12 sets, daily range): BP systolic 98–125; BP diastolic 46–50; PULSE 56–63; RESP 14–17; TEMP 36.4–37.1; O2SAT 92–95
[2024-05-19] MEDS: LEVOTHYROXINE SODIUM 88 MCG TABLET PO (06:12)
--- NOTE | 2024-05-19 07:25 | PM.IMPN ---
Progress Note: A&P Assessment and Plan (1) Stone in renal pelvis: Code(s): N20.0 - Calculus of kidney Status: Acute Assessment and Plan: - urology is following - The stone will be addressed at a later point time per urology - monitor -obtain KUB today- 05/19- urology following (2) Acute pyelonephritis: Code(s): N10 - Acute pyelonephritis Status: Acute Assessment and Plan: - received ceftriaxone-continue - Cystoscopy, right stent placement, Goodrich catheter placement on 05/18- removal today- 05/19 - no fever, WBC reviewed and stable, kidney function stable - blood cultures, urine cultures pending (3) Osteoporosis: Qualifiers: Osteoporosis type: age-related Presence of current pathological fracture: without current pathological fracture Qualified Code(s): M81.0 - Age-related osteoporosis without current pathological fracture Code(s): M81.0 - Age-related osteoporosis without current pathological fracture Status: Acute Assessment and Plan: ca, vit d- continue (4) Vitamin D deficiency: Code(s): E55.9 - Vitamin D deficiency, unspecified Status: Acute Assessment and Plan: resume home med (5) Major depress, part remis: Qualifiers: Major depression recurrence: unspecified whether recurrent Qualified Code(s): 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, single episode, in partial remission Code(s): 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, single episode, in partial remission Status: Acute Assessment and Plan: chronic- resume home med (6) Hypothyroidism, unspecified: Qualifiers: Hypothyroidism type: unspecified Qualified Code(s): E03.9 - Hypothyroidism, unspecified Code(s): E03.9 - Hypothyroidism, unspecified Status: Acute Assessment and Plan: chronic problem- resume home med (7) Palpitations: Code(s): R00.2 - Palpitations Status: Inactive Assessment and Plan: - chronic problem - controlled with metoprolol- will resume Time Spent With Patient Time with patient: 25 - 35 minutes Subjective Date/time seen: 05/19/24 07:25 Interval history: Narrative: 89-year-old female with PMH/o chronic rhinitis, HTN presenting ED with a chief complaint of nausea vomiting and right flank pain. Symptoms started overnight- achy pain in her right flank into her right hip. She had multiple episodes nausea and vomiting with chills. She denies fevers chest pain abdominal pain. Evaluation in the emergency room revealed a urinary tract infection along with gas in the right collecting system with stones in the right renal pelvis. She does have a history of stones which she had passed on her own. Plan on cysto with right stent placement and retrograde pyelogram for 05/18. Pt is seen and examined at the bedside- still a little built drowsy but appropriate, calm, no n/v/d, eating lunch, no pain. She is full code. Meds and history reviewed. Pt does not smoke, drinks. Had open heart surgery in 1962-was doing well for a while but then started having palpitations- that is why she was started on metoprolol- which controlled her palpitations well. She is taking thyroid medication, lexapro- states she no longer depressed - will address it with her PCP upon discharge 05/19- pt is seen and examined this morning. Had Cystoscopy, right stent placement, Goodrich catheter placement with DR Cleary yesterday- 05/18. Doing well overnight- receiving antibiotics. Pain is well controlled. Goodrich in place- plan to remove it today. Review of Systems Constitutional: Constitutional: Denies chills Eyes: Eyes: Denies photophobia ENT: Reports Normal hearing present Neurologic: Reports Normal hearing present Exam Eyes: Direct Ophthalmoscopy: No photophobia Neuro: Cranial nerves: Yes Normal hearing present Objective Data Vital Signs Vital Signs: Vital Signs - 24 hr 05/18/24 07:34 05/18/24 08:47 05/18/24 1
[2024-05-19] MEDS: METOPROLOL SUCCINATE EXT REL 25 MG TABCR BY MOUTH (10:05)
[2024-05-19] MEDS: ESCITALOPRAM OXALATE 10 MG TABLET PO (10:05)
--- NOTE | 2024-05-19 12:11 | WPDANESPN ---
Anes - Prog Note Post-Op Date/Time: 05/19/24 12:11 Cardiovascular status: normal Respiratory status: normal Airway patency: baseline Mental status: baseline Post-Op hydration status: normal Vital Signs: Last Vital Signs Temp 36.4 C 05/19/24 07:43 Pulse 62 05/19/24 12:00 Resp 14 05/19/24 07:43 BP 98/50 L 05/19/24 07:43 Pulse Ox 94 05/19/24 09:33 O2 Del Method Room Air 05/19/24 09:33 O2 Flow Rate 8 05/18/24 11:15 Pain Score (VAS): 0/10 I/O: Intake & Output 05/18/24 05/19/24 05/19/24 23:59 07:59 15:59 Intake Total 480 250 240 Output Total 500 350 Balance -20 -100 240 Laboratory Tests 05/18/24 03:45 05/18/24 03:45 Microbiology 05/18/24 03:38 Urine Clean Catch Urine Culture - Preliminary Escherichia Coli Post-procedural complaints: none Patient Feedback: Patient satisfied with anesthetic care.
--- NOTE | 2024-05-19 12:30 | WPDUROPN2 ---
Progress Note: A&P Assessment and Plan (1) Stone in renal pelvis: Code(s): N20.0 - Calculus of kidney Status: Acute Assessment and Plan: obtain KUB today. Will address stone later point time once gets over acute episode. (2) Acute pyelonephritis: Code(s): N10 - Acute pyelonephritis Status: Acute Assessment and Plan: Awaiting final cultures. Urine culture positive for E coli with sensitivities pending. Blood cultures pending. Subjective Subjective Date/Time Seen: 05/19/24 12:30 Post Op day: 1 ( cystoscopy with right stent placement) Principal diagnosis: pyelitis/ pyelonephritis with right renal stone Interval history: doing better today. Urine is clear. Will plan on Goodrich catheter removal today and reimaging kidney with KUB Review of Systems Review of Systems: All systems reviewed & are unremarkable except as noted in HPI and below Exam Const: General: cooperative and comfortable Resp: Effort & Inspection: normal respiratory effort Cardio: Rate: regular rate Rhythm: regular rhythm Objective Data Vital Signs Vital Signs: Vital Signs - 24 hr 05/18/24 13:12 05/18/24 12:53 05/18/24 14:45 Temperature 37.3 C Pulse Rate 53 L 71 72 Respiratory Rate 14 Blood Pressure 107/60 Pulse Oximetry 95 Oxygen Delivery 05/18/24 17:58 05/18/24 16:00 05/18/24 20:00 Temperature 36.9 C Pulse Rate 70 77 62 Respiratory Rate 16 Blood Pressure 90/48 L Pulse Oximetry 92 Oxygen Delivery 05/18/24 20:00 05/18/24 23:13 05/19/24 00:00 Temperature 36.5 C Pulse Rate 70 65 63 Respiratory Rate 16 16 Blood Pressure 102/45 L Pulse Oximetry 92 95 Oxygen Delivery Room Air 05/19/24 01:40 05/19/24 04:00 05/19/24 07:43 Temperature 36.6 C 36.4 C Pulse Rate 61 60 60 Respiratory Rate 16 14 Blood Pressure 100/46 L 98/50 L Pulse Oximetry 95 92 Oxygen Delivery 05/19/24 08:00 05/19/24 09:33 05/19/24 10:05 Temperature Pulse Rate 59 L 59 L Respiratory Rate Blood Pressure Pulse Oximetry 94 Oxygen Delivery Room Air 05/19/24 12:00 Temperature Pulse Rate 62 Respiratory Rate Blood Pressure Pulse Oximetry Oxygen Delivery Intake/Output Intake/Output: Intake & Output 05/16/24 05/17/24 05/18/24 05/19/24 23:59 23:59 23:59 23:59 Intake Total 3170 490 Output Total 630 350 Balance 2540 140 Meds/Results Medications: Active Medications Generic Name Dose Route Start Last Admin Trade Name Freq PRN Reason Stop Dose Admin Acetaminophen 650 mg 05/18/24 13:35 Acetaminophen 325 Mg Tablet PO Q12H PRN Pain Ergocalciferol 50,000 units 06/17/24 09:00 Ergocalciferol 50,000 Units Capsule PO MONTHLY CRISTAL Escitalopram Oxalate 10 mg 05/18/24 13:45 05/19/24 10:05 Escitalopram Oxalate 10 Mg Tablet PO 10 mg DAILY CRISTAL Administration Ceftriaxone Sodium 1 gm in 50 mls @ 100 mls/hr 05/19/24 06:00 05/19/24 06:42 Rocephin 1 Gm/Ns 50 Ml IVPB Infused Q24H CRISTAL Infusion Levothyroxine Sodium 88 mcg 05/19/24 06:30 05/19/24 06:12 Levothyroxine Sodium 88 Mcg Tablet PO 88 mcg DAILY@0630 CRISTAL Administration Metoprolol Succinate 25 mg 05/18/24 13:50 05/19/24 10:05 Metoprolol Succinate Ext Rel 25 Mg Tabcr BY MOUTH 25 mg QAM CRISTAL Administration Radiology Results: ITS Impressions Abdomen/Pelvis CT 05/18/24 05:47 IMPRESSION: 1. Stones in the right renal pelvis with gas in the pelvis and urothelial thickening. Findings findings suspicious for pyelitis/pyelonephritis. Clinically correlate. 2: Nonobstructing right nephrolithiasis. 3: Intraluminal gas in the bladder. Correlate for history of recent instrumentation. Ureter Stent X-Ray 05/18/24 10:32 IMPRESSION: 1. Right internal ureteral stent placement. Please refer to real-time procedural findings for details.
[2024-05-20] VITALS (10 sets, daily range): BP systolic 98–124; BP diastolic 46–60; PULSE 50–100; RESP 17–18; TEMP 36.3–37; O2SAT 93–96
[2024-05-20] MEDS: LEVOTHYROXINE SODIUM 88 MCG TABLET PO (05:15)
--- NOTE | 2024-05-20 07:31 | PM.IMPN ---
Progress Note: A&P Assessment and Plan (1) Stone in renal pelvis: Code(s): N20.0 - Calculus of kidney Status: Acute Assessment and Plan: - urology is following - The stone will be addressed at a later point time per urology - monitor - obtain KUB today- 05/19- urology following IMPRESSION: 1. Right internal ureteral stent in expected position with loops formed in the right renal pelvis and in the bladder. 2. A couple 5-6 mm stones encircled by the proximal loop of the stent in the right renal pelvis. (2) Acute pyelonephritis: Code(s): N10 - Acute pyelonephritis Status: Acute Assessment and Plan: - received ceftriaxone-continue - Cystoscopy, right stent placement, Goodrich catheter placement on 05/18- removal today- 05/19 - no fever, WBC reviewed and stable, kidney function stable - blood cultures, urine cultures pending waiting final cultures. Urine culture positive for E coli- continue current regimen Blood cultures- prelim- no growth. (3) Osteoporosis: Qualifiers: Osteoporosis type: age-related Presence of current pathological fracture: without current pathological fracture Qualified Code(s): M81.0 - Age-related osteoporosis without current pathological fracture Code(s): M81.0 - Age-related osteoporosis without current pathological fracture Status: Acute Assessment and Plan: ca, vit d- continue (4) Vitamin D deficiency: Code(s): E55.9 - Vitamin D deficiency, unspecified Status: Acute Assessment and Plan: resume home med (5) Major depress, part remis: Qualifiers: Major depression recurrence: unspecified whether recurrent Qualified Code(s): 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, single episode, in partial remission Code(s): 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, single episode, in partial remission Status: Acute Assessment and Plan: chronic- resume home med (6) Hypothyroidism, unspecified: Qualifiers: Hypothyroidism type: unspecified Qualified Code(s): E03.9 - Hypothyroidism, unspecified Code(s): E03.9 - Hypothyroidism, unspecified Status: Acute Assessment and Plan: chronic problem- resume home med (7) Palpitations: Code(s): R00.2 - Palpitations Status: Inactive Assessment and Plan: - chronic problem - controlled with metoprolol- will resume Time Spent With Patient Time with patient: 25 - 35 minutes Subjective Date/time seen: 05/20/24 07:31 Interval history: Narrative: 89-year-old female with PMH/o chronic rhinitis, HTN presenting ED with a chief complaint of nausea vomiting and right flank pain. Symptoms started overnight- achy pain in her right flank into her right hip. She had multiple episodes nausea and vomiting with chills. She denies fevers chest pain abdominal pain. Evaluation in the emergency room revealed a urinary tract infection along with gas in the right collecting system with stones in the right renal pelvis. She does have a history of stones which she had passed on her own. Plan on cysto with right stent placement and retrograde pyelogram for 05/18. Pt is seen and examined at the bedside- still a little built drowsy but appropriate, calm, no n/v/d, eating lunch, no pain. She is full code. Meds and history reviewed. Pt does not smoke, drinks. Had open heart surgery in 1962-was doing well for a while but then started having palpitations- that is why she was started on metoprolol- which controlled her palpitations well. She is taking thyroid medication, lexapro- states she no longer depressed - will address it with her PCP upon discharge 05/19- pt is seen and examined this morning. Had Cystoscopy, right stent placement, Goodrich catheter placement with DR Cleary yesterday- 05/18. Doing well overnight- receiving antibiotics. Pain is well controlled. Goodrich in place- plan to remove it today. 05/20- seen and examined- doing well. Eating and drink
[2024-05-20] MEDS: ESCITALOPRAM OXALATE 10 MG TABLET PO (09:18)
[2024-05-20] MEDS: METOPROLOL SUCCINATE EXT REL 25 MG TABCR BY MOUTH (09:18)
--- NOTE | 2024-05-20 09:38 | WPDUROPN2 ---
Progress Note: A&P Assessment and Plan (1) Acute pyelonephritis: Code(s): N10 - Acute pyelonephritis Status: Acute Assessment and Plan: Urine culture with growth of pansensitive E. coli. Continue antibiotics tailored to urine culture. WBC normal. No fever. Preliminary blood cultures negative to date (2) Stone in renal pelvis: Code(s): N20.0 - Calculus of kidney Status: Acute Assessment and Plan: S/p right ureter stent 05/18/24. KUB shows right stent in expected position with 5-6 mm stone in the right renal pelvis. Will plan for definitive stone management after treatment of acute infection. . Subjective Subjective Date/Time Seen: 05/20/24 09:38 Interval history: Drain is feeling well today. She has no concerns. States she is voiding without difficulty and denies dysuria or hematuria. She is incontinent of urine. She denies flank pain or back pain. No nausea, vomiting, fever, chills. Review of Systems Review of Systems: All systems reviewed & are unremarkable except as noted in HPI and below Exam Narrative: General: Awake, alert, comfortable, no acute distress HEENT: Normocephalic, atraumatic, sclerae anicteric Respiratory: Normal respiratory effort, no accessory muscle use Abdomen: Nondistended, soft, nontender Skin: Normal coloration, warm and dry Neurologic: No focal neuro deficits noted Psychiatric: Appropriate mood and affect, judgment and insight intact Objective Data Vital Signs Vital Signs: Vital Signs - 24 hr 05/19/24 10:05 05/19/24 12:00 05/19/24 14:13 Temperature 98.8 F Pulse Rate 59 L 62 57 L Respiratory Rate 17 Blood Pressure 102/46 L Pulse Oximetry 95 Oxygen Delivery 05/19/24 16:00 05/19/24 20:00 05/19/24 20:00 Temperature Pulse Rate 56 L 59 L 56 L Respiratory Rate 17 Blood Pressure Pulse Oximetry 95 Oxygen Delivery Room Air 05/19/24 22:00 05/20/24 00:00 05/20/24 04:00 Temperature 98.3 F Pulse Rate 60 64 73 Respiratory Rate 16 Blood Pressure 125/48 L Pulse Oximetry 94 Oxygen Delivery 05/20/24 06:00 05/20/24 08:00 05/20/24 09:18 Temperature 98.6 F Pulse Rate 63 63 61 Respiratory Rate 18 Blood Pressure 124/59 L Pulse Oximetry 93 Oxygen Delivery Intake/Output Intake/Output: Intake & Output 05/17/24 05/18/24 05/19/24 05/20/24 23:59 23:59 23:59 23:59 Intake Total 3170 1520 450 Output Total 630 450 Balance 2540 1070 450 Meds/Results Medications: Active Medications Generic Name Dose Route Start Last Admin Trade Name Freq PRN Reason Stop Dose Admin Acetaminophen 650 mg 05/18/24 13:35 Acetaminophen 325 Mg Tablet PO Q12H PRN Pain Ergocalciferol 50,000 units 06/17/24 09:00 Ergocalciferol 50,000 Units Capsule PO MONTHLY CRISTAL Escitalopram Oxalate 10 mg 05/18/24 13:45 05/20/24 09:18 Escitalopram Oxalate 10 Mg Tablet PO 10 mg DAILY CRISTAL Administration Ceftriaxone Sodium 1 gm in 50 mls @ 100 mls/hr 05/19/24 06:00 05/20/24 05:45 Rocephin 1 Gm/Ns 50 Ml IVPB Infused Q24H CRISTAL Infusion Levothyroxine Sodium 88 mcg 05/19/24 06:30 05/20/24 05:15 Levothyroxine Sodium 88 Mcg Tablet PO 88 mcg DAILY@0630 CRISTAL Administration Metoprolol Succinate 25 mg 05/18/24 13:50 05/20/24 09:18 Metoprolol Succinate Ext Rel 25 Mg Tabcr BY MOUTH 25 mg QAM CRISTAL Administration Radiology Results: ITS Impressions Abdomen/Pelvis CT 05/18/24 05:47 IMPRESSION: 1. Stones in the right renal pelvis with gas in the pelvis and urothelial thickening. Findings findings suspicious for pyelitis/pyelonephritis. Clinically correlate. 2: Nonobstructing right nephrolithiasis. 3: Intraluminal gas in the bladder. Correlate for history of recent instrumentation. Ureter Stent X-Ray 05/18/24 10:32 IMPRESSION: 1. Right internal ureteral stent placement. Please refer to real-time procedural findings for details.
[2024-05-20] MEDS: ACETAMINOPHEN 325 MG TABLET 650 MG PO (14:02)
[2024-05-21] VITALS (7 sets, daily range): BP systolic 111–142; BP diastolic 44–70; PULSE 53–109; RESP 16–18; TEMP 36.3; O2SAT 92–100
[2024-05-21] MEDS: LEVOTHYROXINE SODIUM 88 MCG TABLET PO (06:41)
[2024-05-21] MEDS: AMOXICILLIN/CLAVULANATE K 875-125 MG TAB 1 TABLET PO (06:42)
--- NOTE | 2024-05-21 07:15 | PM.IMPN ---
Progress Note: A&P Assessment and Plan (1) Acute pyelonephritis: Code(s): N10 - Acute pyelonephritis Status: Acute Assessment and Plan: Urine culture with growth of pansensitive E. coli. Continue antibiotics tailored to urine culture. WBC normal. No fever. Preliminary blood cultures negative to date 05/20- antibiotics were switched to PO (2) Stone in renal pelvis: Code(s): N20.0 - Calculus of kidney Status: Acute Assessment and Plan: S/p right ureter stent 05/18/24., Glass catheter placement on 05/18- removal today- 05/19 KUB shows right stent in expected position with 5-6 mm stone in the right renal pelvis. Will plan for definitive stone management after treatment of acute infection. Blood cultures neg so far Plan Palpitations- chronic problem- continue metoprolol hypothyroid- chronic- continue home meds Time Spent With Patient Time with patient: 25 - 35 minutes Subjective Date/time seen: 05/21/24 07:15 Interval history: Narrative: 89-year-old female with PMH/o chronic rhinitis, HTN presenting ED with a chief complaint of nausea vomiting and right flank pain. Symptoms started overnight- achy pain in her right flank into her right hip. She had multiple episodes nausea and vomiting with chills. She denies fevers chest pain abdominal pain. Evaluation in the emergency room revealed a urinary tract infection along with gas in the right collecting system with stones in the right renal pelvis. She does have a history of stones which she had passed on her own. Plan on cysto with right stent placement and retrograde pyelogram for 05/18. Pt is seen and examined at the bedside- still a little built drowsy but appropriate, calm, no n/v/d, eating lunch, no pain. She is full code. Meds and history reviewed. Pt does not smoke, drinks. Had open heart surgery in 1962-was doing well for a while but then started having palpitations- that is why she was started on metoprolol- which controlled her palpitations well. She is taking thyroid medication, lexapro- states she no longer depressed - will address it with her PCP upon discharge 05/19- pt is seen and examined this morning. Had Cystoscopy, right stent placement, Glass catheter placement with DR Cleary yesterday- 05/18. Doing well overnight- receiving antibiotics. Pain is well controlled. Glass in place- plan to remove it today. 05/20- seen and examined- doing well. Eating and drinking ok- no n/v/d. glass removed. voiding. Was seen per urology this am- another day of IV antibiotics and possible discharge tomorrow. 05/21- Antibiotics were switched to PO- based on culture/sensitivities- tolerating it well. NO fevers overnight, VS reviewed. Uneventful night. Review of Systems Review of Systems: All systems reviewed & are unremarkable except as noted in HPI and below Constitutional: Constitutional: Denies chills Eyes: Eyes: Denies photophobia ENT: Reports Normal hearing present Cardiovascular: Cardiovascular: Denies chest pain, Denies diaphoresis, Denies pedal edema and Denies leg edema Respiratory: Respiratory: Denies chest congestion and Denies cough Gastrointestinal: Gastrointestinal: Denies abdominal pain Genitourinary: Genitourinary: Denies hematuria Neurologic: Reports Normal hearing present Exam Narrative: General: Awake, alert, comfortable, no acute distress HEENT: Normocephalic, atraumatic, sclerae anicteric Respiratory: Normal respiratory effort, no accessory muscle use Abdomen: Nondistended, soft, nontender Skin: Normal coloration, warm and dry Neurologic: No focal neuro deficits noted Psychiatric: Appropriate mood and affect, judgment and insight intact Const: General: comfortable Eyes: General: appearance normal, both eyes and all related structures Direct Ophthalmoscopy: No photophobia Resp: Effort & Inspection: normal respiratory effort Auscultation: clear to auscultation bilaterally Cardio: Rate:
[2024-05-21 08:32] LABS: Basophils Percent Auto 0.7 % (0.2-1.2); Eosinophils Absolute Auto 0.3 K/mm3 (0-0.3); Eosinophils Percent Auto 4.5 % (0-4.4); Hematocrit 38.4 % (37.0-47.0); Hemoglobin 12.9 g/dL (12.0-15.0); Immature Granulocyte Absolute 0.02 K/mm3 (0.00-0.031); Immature Granulocyte Percent A 0.4 % (0-0.5); Lymphocytes Absolute Auto 1.19 K/mm3 (0.9-3.2); Lymphocytes Percent Auto 21.3 % (18.3-44.2); Mean Corpuscular HGB Conc 33.6 g/dl (32-36); Mean Corpuscular Hemoglobin 32.5 pg (26-34); Mean Corpuscular Volume 96.7 fl (80-100); Mean Platelet Volume 9.8 fl (7.4-10.4); Monocytes Absolute Auto 0.8 K/mm3 (0.1-0.6); Monocytes Percent Auto 13.4 % (2.6-8.5); Neutrophils Absolute Auto 3.3 K/mm3 (1.3-6.7); Neutrophils Percent Auto 59.7 % (45.5-73.1); Platelet Count Result 209 k/mm3 (150-375); Red Blood Count 3.97 M/mm3 (4.2-5.4); Red Cell Distribution Width 13.2 % (11.5-14.5); White Blood Count 5.6 K/mm3 (4.5-10.0)
[2024-05-21 08:46] LABS: Alanine Aminotransferase 57 U/L (6-35); Albumin Level 3.8 g/dL (3.5-5.1); Alkaline Phosphatase 77 U/L (38-126); Anion Gap 8 mmol/L (4-12); Aspartate Amino Transferase 48 U/L (14-36); Bilirubin,Total 0.5 mg/dL (0.2-1.3); Blood Urea Nitrogen 7 mg/dL (7-17); Calcium 8.8 mg/dL (8.4-10.2); Carbon Dioxide 30 mmol/L (22-30); Chloride 100 mmol/L (98-107); Estimated CRCL calculation 61 ml/min; Estimated Glomerular Filt Rate > 60; Glucose 87 mg/dL (65-110); Potassium 2.9 mmol/L (3.4-5.0); Sodium 138 mmol/L (137-145)
--- NOTE | 2024-05-21 09:01 | PM.DS ---
DS: Admitting Diagnosis Discharge Date 05/21 Admitting Diagnosis flank pain DS: Discharge Diagnosis Discharge Diagnosis (1) Acute pyelonephritis: Code(s): N10 - Acute pyelonephritis Status: Acute Assessment and Plan: Urine culture with growth of pansensitive E. coli. Continue antibiotics tailored to urine culture. WBC normal. No fever. Preliminary blood cultures negative to date 05/20- antibiotics were switched to PO (2) Stone in renal pelvis: Code(s): N20.0 - Calculus of kidney Status: Acute Assessment and Plan: S/p right ureter stent 05/18/24., Glass catheter placement on 05/18- removal today- 05/19 KUB shows right stent in expected position with 5-6 mm stone in the right renal pelvis. Will plan for definitive stone management after treatment of acute infection. Blood cultures neg so far Plan Palpitations- chronic problem- continue metoprolol hypothyroid- chronic- continue home meds DS: Summary Hospital Course Hospital Course: Narrative: 89-year-old female with PMH/o chronic rhinitis, HTN presenting ED with a chief complaint of nausea vomiting and right flank pain. Symptoms started overnight- achy pain in her right flank into her right hip. She had multiple episodes nausea and vomiting with chills. She denies fevers chest pain abdominal pain. Evaluation in the emergency room revealed a urinary tract infection along with gas in the right collecting system with stones in the right renal pelvis. She does have a history of stones which she had passed on her own. Plan on cysto with right stent placement and retrograde pyelogram for 05/18. Pt is seen and examined at the bedside- still a little built drowsy but appropriate, calm, no n/v/d, eating lunch, no pain. She is full code. Meds and history reviewed. Pt does not smoke, drinks. Had open heart surgery in 1962-was doing well for a while but then started having palpitations- that is why she was started on metoprolol- which controlled her palpitations well. She is taking thyroid medication, lexapro- states she no longer depressed - will address it with her PCP upon discharge 05/19- pt is seen and examined this morning. Had Cystoscopy, right stent placement, Glass catheter placement with DR Cleary yesterday- 05/18. Doing well overnight- receiving antibiotics. Pain is well controlled. Glass in place- plan to remove it today. 05/20- seen and examined- doing well. Eating and drinking ok- no n/v/d. glass removed. voiding. Was seen per urology this am- another day of IV antibiotics and possible discharge tomorrow. 05/21- Antibiotics were switched to PO- based on culture/sensitivities- tolerating it well. NO fevers overnight, VS reviewed. Uneventful night. ok to discharge with a close follow up with urology Status at Discharge Functional status at discharge: independent ambulation Overall status at discharge: patient is back to baseline Time Spent with Patient Time attestation: Total time spent providing and/or coordinating discharge services: Time spent: Less than 30 minutes Exam Narrative: General: Awake, alert, comfortable, no acute distress HEENT: Normocephalic, atraumatic, sclerae anicteric Respiratory: Normal respiratory effort, no accessory muscle use Abdomen: Nondistended, soft, nontender Skin: Normal coloration, warm and dry Neurologic: No focal neuro deficits noted Psychiatric: Appropriate mood and affect, judgment and insight intact Const: General: comfortable Eyes: General: appearance normal, both eyes and all related structures Direct Ophthalmoscopy: No photophobia Resp: Effort & Inspection: normal respiratory effort Auscultation: clear to auscultation bilaterally Cardio: Rate: regular rate Rhythm: regular rhythm GI: Auscultation: normal bowel sounds Skin: General skin exam: normal color Neuro: Cranial nerves: Yes Normal hearing present Speech: normal speech Motor exam (neuro): 5/5 motor strength pr
[2024-05-21] MEDS: METOPROLOL SUCCINATE EXT REL 25 MG TABCR BY MOUTH (09:02)
[2024-05-21] MEDS: ESCITALOPRAM OXALATE 10 MG TABLET PO (09:02)
--- NOTE | 2024-05-21 09:29 | WPDUROPN2 ---
Progress Note: A&P Assessment and Plan (1) Acute pyelonephritis: Code(s): N10 - Acute pyelonephritis Status: Acute Assessment and Plan: Urine culture with growth of pansensitive E. coli. Continue antibiotics tailored to urine culture. WBC normal. No fever. Preliminary blood cultures negative to date Okay for discharge on culture specific antibiotics. Will plan for outpatient follow up in 1-2 weeks for repeat culture prior to scheduling stone surgery. (2) Stone in renal pelvis: Code(s): N20.0 - Calculus of kidney Status: Acute Assessment and Plan: S/p right ureter stent placement 05/18/24. KUB shows right stent in expected position with 5-6 mm stone in the right renal pelvis. Will plan for right ESWL after resolution of acute infection. Subjective Subjective Date/Time Seen: 05/21/24 09:29 Interval history: She is feeling much improved today. States flank pain has resolved. Denies abdominal pain or back pain. Complains of urinary urgency but denies any bladder spasms. Denies dysuria or hematuria. Denies nausea, vomiting, fever, chills. Review of Systems Review of Systems: All systems reviewed & are unremarkable except as noted in HPI and below Exam Narrative: General: Awake, alert, comfortable, no acute distress HEENT: Normocephalic, atraumatic, sclerae anicteric Respiratory: Normal respiratory effort, no accessory muscle use Abdomen: Nondistended, soft, nontender Skin: Normal coloration, warm and dry Neurologic: No focal neuro deficits noted Psychiatric: Appropriate mood and affect, judgment and insight intact Objective Data Vital Signs Vital Signs: Vital Signs - 24 hr 05/20/24 12:00 05/20/24 14:17 05/20/24 16:00 Temperature 97.8 F Pulse Rate 53 L 54 L 50 L Respiratory Rate 17 Blood Pressure 98/46 L Pulse Oximetry 95 Oxygen Delivery 05/20/24 21:15 05/20/24 20:00 05/21/24 04:25 Temperature 97.4 F L 97.3 F L Pulse Rate 56 L 60 58 L Respiratory Rate 18 18 18 Blood Pressure 121/60 111/44 L Pulse Oximetry 94 96 92 Oxygen Delivery Room Air 05/20/24 20:00 05/21/24 00:00 05/21/24 04:00 Temperature Pulse Rate 100 100 109 H Respiratory Rate Blood Pressure Pulse Oximetry Oxygen Delivery 05/21/24 09:01 05/21/24 09:02 Temperature Pulse Rate 66 66 Respiratory Rate 16 Blood Pressure 142/70 H Pulse Oximetry 100 Oxygen Delivery Intake/Output Intake/Output: Intake & Output 05/18/24 05/19/24 05/20/24 05/21/24 23:59 23:59 23:59 23:59 Intake Total 3170 1520 2270 250 Output Total 630 450 Balance 2540 1070 2270 250 Meds/Results Medications: Active Medications Generic Name Dose Route Start Last Admin Trade Name Freq PRN Reason Stop Dose Admin Acetaminophen 650 mg 05/18/24 13:35 05/20/24 14:02 Acetaminophen 325 Mg Tablet PO 650 mg Q12H PRN Administration Pain Amoxicillin/Clavulanate Potassium 1 tablet 05/21/24 07:00 05/21/24 06:42 Amoxicillin/Clavulanate K 875-125 Mg Tab PO 05/24/24 21:01 1 tablet Q12HR CRISTAL Administration Ergocalciferol 50,000 units 06/17/24 09:00 Ergocalciferol 50,000 Units Capsule PO MONTHLY [facility] Escitalopram Oxalate 10 mg 05/18/24 13:45 05/21/24 09:02 Escitalopram Oxalate 10 Mg Tablet PO 10 mg DAILY [facility] Administration Potassium Chloride 40 meq/ 520 mls @ 130 mls/hr 05/21/24 09:15 Sodium Chloride IVPB 05/21/24 13:14 ONCE ONE Levothyroxine Sodium 88 mcg 05/19/24 06:30 05/21/24 06:41 Levothyroxine Sodium 88 Mcg Tablet PO 88 mcg DAILY@0630 CRISTAL Administration Metoprolol Succinate 25 mg 05/18/24 13:50 05/21/24 09:02 Metoprolol Succinate Ext Rel 25 Mg Tabcr BY MOUTH 25 mg QAM CRISTAL Administration Radiology Results: ITS Impressions Abdomen/Pelvis CT 05/18/24 05:47 IMPRESSION: 1. Stones in the right renal pelvis with gas in the pelvis and urothelial thickening. Findings findings suspiciou
[2024-05-21] MEDS: POTASSIUM CHLORIDE INJ 40 MEQ in SODIUM CHLORIDE 0.9% IV 500 ML 130 MEQ IVPB (10:47)
== END 2024-05-21 15:55 | disposition home or self-care (01) | DRG 660 ==
LOC: ANHED 06:40 → ANH3MEDSUR 07:31 → ANH2MED 08:37
PROVIDERS: Urology; Admitting Provider Internal Medicine; Emergency Provider Emergency Medicine; PCP Nurse Practitioner Family; Visit Provider Nurse Practitioner
PROC: 0T768DZ Dilation of Right Ureter with Intraluminal Device, Via Natural or Artificial Opening Endoscopic (ICD-10-PCS; CPT 52352; principal; 2024-05-18 10:30)
DX: N20.0 Calculus of kidney (principal); N10 Acute pyelonephritis; I10 Essential (primary) hypertension; E03.9 Hypothyroidism, unspecified; E78.00 Pure hypercholesterolemia, unspecified; E55.9 Vitamin D deficiency, unspecified; M81.0 Age-related osteoporosis without current pathological fracture; M47.819 Spondylosis without myelopathy or radiculopathy, site unspecified; R00.2 Palpitations; F32.9 Major depressive disorder, single episode, unspecified
CPT/HCPCS: 36415; 74018; 74177; 80053; 81001; 83690; 85025; 87040; 87077; 87086; 87088; 87186; 96365; 99285; A9270; C1769; C2617; J0696; J1100; J2371; J2405; J2704; J3010; J3480; J7030; J7040; Q9967

== ENCOUNTER 2024-06-11 13:01 | Outpatient (CLI) | payer MEDICARE, OTHER, SELFPAY ==
[2024-06-11 13:40] LABS: Add Urine Microscopic? YES; Appearance Urine Turbid (Clear); Bacteria Urine 4+ /hpf; Bilirubin Urine Negative (Negative); Blood Urine 3+ (Negative); Color Urine Dark Yellow (Yellow); Glucose Urine UA Negative (Negative); Ketones Urine Trace mg/dL (Negative); Leukocyte Esterase Ur 3+ LEU/UL (Negative); Need Manual Microscopic Reviewed; Nitrate Urine Positive (Negative); Protein Urine 2+ mg/dL (Negative); RBC Urine >100 /hpf (0-2); Specific Grav Ur 1.022 (1.001-1.035); Squamous Epithelial Cell Urine None Seen /hpf (Few); WBC Urine >100 /hpf (0-3); pH Urine 5.5 (5.0-9.0)
== END 2024-06-11 13:02 | disposition home or self-care (01) ==
PROVIDERS: PCP Nurse Practitioner Family; Visit Provider Nurse Practitioner Family
DX: R30.0 Dysuria (principal)
CPT/HCPCS: 81001; 87077; 87086; 87088; 87186

== ENCOUNTER 2024-06-26 12:28 | Outpatient (CLI) | payer MEDICARE, OTHER, SELFPAY ==
--- NOTE | 2024-06-26 12:39 | ECG_ITS ---
Test Date: 2024-06-26 12:49:53 Measurements Intervals [place] Rate: 60 P: -26 PA: 224 QRS: 7 QRSD: 102 T: 8 QT: 432 QTc: 432 Interpretive Statements SINUS RHYTHM WITH FIRST DEGREE AV BLOCK INCOMPLETE RIGHT BUNDLE BRANCH BLOCK [90+ ms QRS DURATION, TERMINAL R IN V1/V2, 40+ ms S IN I/aVL/V4/V5/V6] NONSPECIFIC ST & T-WAVE ABNORMALITY ABNORMAL ELECTROCARDIOGRAM No previous ECG available for comparison Electronically Signed On 06-27-2024 13:07:54 CDT by Domo Montenegro M.D.
[2024-06-26 13:15] LABS: Potassium 3.5 mmol/L (3.4-5.0)
[2024-06-26 13:19] LABS: INR 1.1; Partial Thromboplastin Time 31.9 Seconds (22.3-36.8); Prothrombin Time 14.3 Seconds (11.1-14.7)
[2024-06-26 13:24] LABS: Add Urine Microscopic? YES; Appearance Urine Cloudy (Clear); Bacteria Urine None Seen /hpf; Bilirubin Urine Negative (Negative); Blood Urine 3+ (Negative); Color Urine Yellow (Yellow); Glucose Urine UA Negative (Negative); Ketones Urine Negative (Negative); Leukocyte Esterase Ur 2+ LEU/UL (Negative); Need Manual Microscopic Reviewed; Nitrate Urine Negative (Negative); Protein Urine 2+ mg/dL (Negative); RBC Urine >100 /hpf (0-2); Squamous Epithelial Cell Urine None Seen /hpf (Few); Urobilinogen Urine 0.2 mg/dL (<2.0); WBC Urine >100 /hpf (0-3)
== END 2024-06-26 12:29 | disposition home or self-care (01) ==
PROVIDERS: Anesthesiology; PCP Nurse Practitioner Family; Visit Provider Urology
DX: Z01.818 Encounter for other preprocedural examination (principal); N20.0 Calculus of kidney; E78.00 Pure hypercholesterolemia, unspecified; I10 Essential (primary) hypertension; E87.6 Hypokalemia
CPT/HCPCS: 36415; 81001; 84132; 85610; 85730; 87086; 93005

== ENCOUNTER 2024-06-28 01:15 | Day surgery (SDC) | payer MEDICARE, OTHER, SELFPAY ==
[2024-06-26 08:38] VITALS: BMI 21.7
--- NOTE | 2024-06-26 08:54 | PC.NURSE ---
Addendum entered by Olga Muir RN 06/26/24 09:01: Report to the Outpatient Waiting Room, entrance under the green pavilion located off [address], at time __0630am on date __06/28/24 . Planned Procedure Time: ____08:30am____.? Pt is aware of these times and date and verbalizes understanding Original Note: Report to the Outpatient Waiting Room, entrance under the green pavilion located off [address], at time on date . Planned Procedure Time: .? Time changes happen often and if your time is changed the preop area will call you the afternoon before. - You and your visitor will be asked to self-screen and do not enter if you have any COVID symptoms. Please call surgeon if you need to reschedule. - A mask is optional within the hospital at this time. Patients may have clear liquids (water, carbonated beverages, clear teas, apple juice) until 3 hours prior to surgery with a maximum of 20 ounces. - No food from midnight until time of surgery and no smoking Take only the following medications with a SIP of water on the morning of surgery: ____Metoprolol, Lexapro, and Levothyroxine DO NOT STOP ANY OF YOUR OTHER PRESCRIPTION MEDICATIONS PRIOR TO SURGERY EXCEPT THE FOLLOWING Medications to discontinue per physician Hold all vitamins, supplements, probiotics, and herbs for 3 days per Anesthesia Date to take last dose____06/24/24 Please no make-up, nail nepalese, hairspray, perfume, deodorant, or body powder the day of surgery.? No jewelry (including any body piercings) or valuables the day of surgery, leave them at home.? Please take a shower or bath the night before, or the morning of, surgery with an antibacterial soap.? Wear comfortable, loose fitting clothing.? - Jewelry must be removed prior to entering the operating room.? Rings and piercings that are not removed may be cut off. - The hospital will not accept responsibility for valuables.? - Please leave all valuables, including medications, at home the day of surgery. If you are going home after surgery, a licensed wrecking car driver must drive you home.? - NO public transportation without another adult if you receive anesthesia. - We recommend that an adult stay with you for 24 hours following discharge. - We also recommend that you do not drive, make important decision, drink alcoholic beverages, or take any drugs that were not prescribed by your health care provider for at least 24 hours after your discharge time. Follow any additional instructions given to you from your surgeon. Telephone instructions given to ___patient and asked if any additional questions and then verbalized understanding. Patient advised to call surgeon office or pre surgery nurse liaison [phone] if any additional questions.
[2024-06-28] VITALS (7 sets, daily range): BP systolic 112–132; BP diastolic 48–74; PULSE 65–71; RESP 15–18; TEMP 36.6–36.9; O2SAT 95–100; BMI 21.5
--- NOTE | ~2024-06-28 | XR_ITS ---
Supine and upright views of the abdomen Clinical history: Lithotripsy COMPARISON: 05/19/2024 Findings: Bowel gas pattern is nonspecific. No evidence for obstruction or free air. Right ureteral s tent in place. There is a 9 mm stone at the proximal pigtail of the ureteral stent on the right side. No other definite stones identified. Osseous structures are intact. Impression: Stable 9 mm stone about the proximal pigtail of the right ureteral stent. Reviewed, dictated and finalized at location M. Impression: Stable 9 mm stone about the proximal pigtail of the right ureteral stent.
--- NOTE | 2024-06-28 07:24 | WPDHPUPDATE1 ---
History and Physical Update Update Date/Time: 06/28/24 07:24 History and Physical has been reviewed, including an updated exam of the patient. There are NO changes in the patient's condition. Risks, benefits, and alternatives have been discussed and questions answered. Patient agrees to proceed with procedure.
[2024-06-28] MEDS: LACTATED RINGERS 1,000 ML 30 ML IV CONT (08:00)
--- NOTE | 2024-06-28 08:01 | WPDANESEPPF ---
Anes - Initial Pre Proc Eval Procedure: Operation Date: 06/28/24 08:30 Proposed Procedures p Right Extracorporeal Shock Wave Lithotripsy - Bridger Cleary MD Date/Time: 06/28/24 08:01 Surgeon: Brdiger Cleary MD Pre Op Diagnosis: right kidney stone Patient Data Age: 89 Gender: F Height: 1.57 m Weight: 53.4 kg Last Vital Signs Temp 36.9 C 06/28/24 07:17 Pulse 68 06/28/24 07:17 BP 116/74 06/28/24 07:17 Pulse Ox 95 06/28/24 07:17 O2 Del Method Room Air 06/28/24 07:17 Allergies Allergy/AdvReac Type Severity Reaction Status Date / Time Sulfa (Sulfonamide Allergy Unknown Rash Verified 06/26/24 08:32 Antibiotics) codeine AdvReac Unknown Nausea and Verified 06/26/24 08:32 Vomiting Home Medications Medication Instructions Recorded Confirmed Type cod liver oil 1 cap PO BID 10/12/20 06/26/24 History magnesium L-lactate 84 mg 84 mg PO BID 10/12/20 06/26/24 History tablet,extended release L.acidoph, paracasei,B. lactis 10 1 cell PO DAILY 04/20/23 06/26/24 History billion cell capsule (Digestive Advantage Advanced Probiotic) acetaminophen 650 mg 650 mg PO Q12H PRN Pain 04/20/23 06/26/24 History tablet,extended release (Arthritis Pain Relief (acetaminophen) ER) herbal drugs (Super Energy Herbal 1 tablet PO AC 04/20/23 06/26/24 History Complex tablet) turmeric 100 mg-yanick 150 2 cap PO DAILY 04/20/23 06/26/24 History mg-olive 50 mg-oreg 150 mg-capryl capsule vit A 12,500 unit-zinc 12.5 1 cap PO DAILY 04/20/23 06/26/24 History rn-kqmelo-jetuu-bilberry-herb #261 capsule (Lipot[employer] Vision Support) vit A-vit C-zinc-herb comp 15 1 mirian PO DAILY 04/20/23 06/26/24 History lozenges ergocalciferol (vitamin D2) 1,250 50,000 unit PO MONTHLY #3 caps 12/07/23 06/26/24 Rx mcg (50,000 unit) capsule escitalopram oxalate 10 mg tablet 10 mg PO DAILY #90 tabs 03/07/24 06/26/24 Rx (Lexapro) levothyroxine 88 mcg capsule See Rx Instructions .Route 05/13/24 06/26/24 Rx (Tirosint) .COMPLEX #90 caps metoprolol succinate 25 mg See Rx Instructions .Route 05/13/24 06/26/24 Rx tablet,extended release 24 hr .COMPLEX #90 tabs ciprofloxacin HCl 500 mg tablet 500 mg PO BID 06/26/24 06/26/24 History Patient hx anesthesia problems: none Family hx anesthesia problems: none Results Review: All pre-operative results and documents have been reviewed as part of the pre-operative evaluation. 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 Palpitations Pure hypercholesterolemia Vitamin D deficiency Family History Family History Sibling Family history of throat cancer Patient's brother is Carcinoma of colon Mother Patient's mother is Family history of congenital heart disease Carcinoma of colon Acute myocardial infarction Father Patient's father is Hypertension Family history of congenital heart disease Acute myocardial infarction Other Family history of cardiovascular disease Social History Social History Smoking status: Never smoker Second hand tobacco smoke exposure: Yes Alcohol intake: never Substance use: never Substance use type: does not use Do You Feel Safe in your Home?: No Lack of Transportation: No Lack of Food: Never True Current Housing: I Have Housing Concerned About Future Housing: No Difficulty Paying Gas/Electric Bills: No Difficulty Paying for Meds: No Currently Unemployed: No Education: Associate Degree
[2024-06-28] MEDS: ceFAZolin 2 GM/D5W 50 ML 2 GM/50 ML BAG IVPB (09:16)
--- NOTE | 2024-06-28 09:50 | P.OP_ITS ---
Procedure Note - Detailed Date of Procedure 06/28/24 Pre-op Diagnosis right kidney stone Post-op Diagnosis Same Procedure Performed Lithotripsy of right renal calculus 8-9 mm Surgeon Bridger Cleary MD Anesthesia General Description of Procedure Patient is taken to the operative suite correctly identified. Once anesthesia was obtained the stone was localized in both planes. Two thousand five hundred shocks were given the stone. She did have quite a bit her respiratory effort which limited the total number of shocks actually given to the stone itself. Nonetheless she did well was taken recovery stable condition. She will follow- up in 7-10 days with KUB. This completes dictation. Please send a copy of op note to office. Estimated Blood Loss 0 Packing No Pathology None sent Complications No immediate complications Condition Stable Disposition PACU
== END 2024-06-28 11:15 | disposition home or self-care (01) ==
PROVIDERS: PCP Nurse Practitioner Family; Visit Provider Urology
PROC: (CPT 50590; principal; 2024-06-28 08:30)
DX: N20.0 Calculus of kidney (principal); I10 Essential (primary) hypertension; E03.9 Hypothyroidism, unspecified; E55.9 Vitamin D deficiency, unspecified; E78.00 Pure hypercholesterolemia, unspecified; F32.4 Major depressive disorder, single episode, in partial remission
CPT/HCPCS: 50590; 74018; J0690; J2405; J2704; J3010; J7120

== ENCOUNTER 2024-07-11 14:16 | Outpatient (CLI) | payer MEDICARE, OTHER, SELFPAY ==
--- NOTE | ~2024-07-11 | XR_ITS ---
XR abdomen/kub 1V Ordering provider: Bridger Cleary MD History: . Kidney Stone FU . Comparison: June 28, 2024 FINDINGS: BOWEL: Nonobstructive bowel gas pattern. ORGANOMEGALY: None. SIGNIFICANT PATHOLOGIC CALCIFICATIONS: Stones in the right kidney lower pole. Right double-J stent. OTHER: No free air is seen under the diaphragm. Levoscoliosis with degenerative spine. IMPRESSION: NO ACUTE ABDOMINAL FINDINGS. Stones in the right kidney lower pole. Reviewed, dictated and finalized at location A.
== END 2024-07-11 14:17 | disposition home or self-care (01) ==
PROVIDERS: PCP Nurse Practitioner Family; Visit Provider Urology
DX: N20.0 Calculus of kidney (principal)
CPT/HCPCS: 74018

== ENCOUNTER 2024-07-18 10:12 | Outpatient (CLI) | payer MEDICARE, OTHER, SELFPAY ==
--- NOTE | ~2024-07-18 | XR_ITS ---
XR abdomen/kub 1V Ordering provider: Bridger Cleary MD History: . follow up for kidney stones . Comparison: None. FINDINGS: BOWEL: Nonobstructive bowel gas pattern. ORGANOMEGALY: None. SIGNIFICANT PATHOLOGIC CALCIFICATIONS: Calcifications in the right kidney lower pole. The right doubl e-J stent. OTHER: No free air is seen under the diaphragm. Levoscoliosis with degenerative changes of the spine. IMPRESSION: NO ACUTE ABDOMINAL FINDINGS. Right kidney stones. Right double-J stent. No change from previous examination. Reviewed, dictated and finalized at location A.
== END 2024-07-18 10:13 | disposition home or self-care (01) ==
LOC: MICIMG 10:16
PROVIDERS: PCP Urology; Visit Provider Urology
DX: N20.0 Calculus of kidney (principal)
CPT/HCPCS: 74018

== ENCOUNTER 2024-11-26 15:09 | Emergency (ER) | payer MEDICARE, OTHER, SELFPAY ==
--- NOTE | ~2024-11-26 | CT_ITS ---
EXAMINATION: CT brain wo con DATE: 11/26/2024 17:57 INDICATION: Head injury. TECHNIQUE: Computed tomography (CT) of the head was performed without intravenous contrast. The mA wa s adjusted according to patient size. Iterative reconstruction technique was employed. The dose-lengt h product was 605.33 mGy-cm. COMPARISON: None FINDINGS: There is diffuse brain volume loss. There are scattered areas of low attenuation in the cer ebral white matter, which is within normal limits for the patient's age. There is no intracranial he morrhage, acute infarction, or abnormal intracranial mass lesion. The ventricles are normal in size. There are likely changes of ocular lens replacement surgeries. There is mild mucosal thickening in th e paranasal sinuses. The mastoid air cells are normal. There is a posterior superior scalp laceration . IMPRESSION: 1. Normal aging brain. Reviewed, dictated and finalized at location A. RANGER IMPRESSION: 1. Normal aging brain.
--- NOTE | ~2024-11-26 | CT_ITS ---
EXAMINATION: CT cervical spine wo con DATE: 11/26/2024 17:57 INDICATION: Neck injury. TECHNIQUE: Computed tomography (CT) of the cervical spine was performed without intravenous contrast. Automated exposure control and iterative reconstruction technique were employed. The dose-length pro duct was 133.97 mGy-cm. COMPARISON: None FINDINGS: There is 7 degrees dextrocurvature of cervicothoracic spine. There is 2 mm anterolisthesis of C4 on C5 and C7 on T1. There is a benign bone island in C7 spinous process. There is mildly decrea sed disc height at C2-C3 and C3-C4, moderately decreased disc height at C4-C5, and severely decreased disc height at C5-C6, C6-C7, and C7-T1. The following disc levels are specifically discussed: C2-C3: There is no uncovertebral joint osteoarthritis. There is severe right and moderate left facet joint osteoarthritis. There is mild right neural foraminal stenosis. There is no central canal stenos is. C3-C4: There is mild left uncovertebral joint osteoarthritis. There is severe bilateral facet joint o steoarthritis. There is mild left neural foraminal stenosis. There is no central canal stenosis. C4-C5: There is severe bilateral uncovertebral joint osteoarthritis. There is severe bilateral facet joint osteoarthritis. There is mild bilateral neural foraminal stenosis. There is mild central canal stenosis. C5-C6: There is severe bilateral uncovertebral joint osteoarthritis. There is severe bilateral facet joint osteoarthritis. There is mild bilateral neural foraminal stenosis. There is mild central canal stenosis. C6-C7: There is severe lateral uncovertebral joint osteoarthritis. There is moderate bilateral facet joint osteoarthritis. There is mild left neural foraminal stenosis. There is mild central canal steno sis. C7-T1: There is severe bilateral uncovertebral joint osteoarthritis. There is severe bilateral facet joint osteoarthritis. There is mild bilateral neural foraminal stenosis. There is no central canal st enosis. IMPRESSION: 1. No fracture. 2. Severe cervical spondylosis. Reviewed, dictated and finalized at location A. MATERNAL CHILD
--- OUTSIDE RECORDS SUMMARY | 2024-11-26 15:36 | XMS_ITS | Continuity of Care Document ---
Author Organization [facility] [employer] Address [address] [place] [address] Phone Care Team Providers Care Clinic Charge Nurse Name Role Phone Kathy Atkins MD Unavailable Unavailable Procedures Procedure Date OFFICE/OUTPATIENT VISIT, EST SMEAR, WET MOUNT, SALINE/INK OFFICE/OUTPATIENT VISIT, EST Advance Directives Directive Yes / No Effective Date File Name No Information Encounters Encounter Description Practice Location Reason(s) For Visit Diagnoses Date Provider Providers Copied on Encounter OFFICE/OUTPAT IENT VISIT, [facility] [address] [facility], [address], [place], [place], [id number], tel:[phone] [facility] No Information Wilbert Chavez. [address] [place], [address], [place]. tel:[phone] Referring Provider: Kathy York, [address] [place], [address]. tel:[phone] OFFICE/OUTPAT IENT VISIT, Pending sale to [facility] [employer] [facility], [address], [place], [place], [id number], [place] tel:[phone] [facility] No Information Wilbert Chavez. [address] [place], [address], [place]. tel:[phone] Referring Provider: Kathy York, [address] [place], [address]. tel:[phone] Family History Family Member Type Diagnosis Age At Onset No Information Payers Payer name Insurance type Covered alliance party ID Authorcheyennea tibrian(s) Medicare NGS- [id number] For Life [facility] [id number] Social History Type Description Quantity Date Captured Comments Sex Female Smoking Status No Information Chief Complaint And Reason For Visit No Information Reason For Referral Reason For Referral No Information History Of Present Illness Encounter Date Complaint History Of Prese nt Illness No Information Functional Status Date Functional Assessmen t No Information Instructions Date Instruction Additional Infor mation No Information Assessments Type Assessment Date No Information Patient Care Teams Name Effective Dates (start - stop) Status Members No Information
[2024-11-26 15:43] VITALS: BP 139/88; PULSE 97; RESP 18; TEMP 36.7; O2SAT 97
--- NOTE | 2024-11-26 16:18 | ED_ITS ---
HPI - General Adult General Chief complaint: Fall <Liyah Guevara, [employer] SUPERVISOR - Last Filed: 11/26/24 18:39> Stated complaint: GLF-lac tp back of head- <Liyah Solano February, [employer]SEM[employer] SUPERVISOR - Last Filed: 11/26/24 18:39> Time Seen by Provider: 11/26/24 16:18 <Liyah Solano February, [employer]SEM[employer] SUPERVISOR - Last Filed: 11/26/24 18:39> Focused HPI: Deja Foote is an 89 y/o female who presents after she states she stumbled and hit the back of her head on the door and then fell on the floor.. She denies any LOC/ no back pain / hip pain. Laceration to the back of her head currently bleeding controlled. Not on any blood thinners. GENERAL: Well-appearing, well-nourished, and in no acute distress. HEAD: Normocephalic, atraumatic. CHEST: Clear to auscultation. ?No respiratory distress. HEART: Regular rate and rhythm.? NEURO: ?Alert and oriented x3. Patient screened in triage and initial orders placed.? ?Additional care and disposition to be based upon?diagnostic testing and treatment. <Liyah Solano February, [employer] SUPERVISOR - Last Filed: 11/26/24 18:39> History of Present Illness HPI narrative: I agree with the evaluation and assessment performed by Fatuma Guevara NP <Eloina Fernando, [employer] SUPERVISOR - Last Filed: 11/26/24 19:12> Related Data Home medications: Home Medications ?Medication ?Instructions ?Recorded ?Confirmed ?Last Taken ?Type cod liver oil 1 cap PO BID 10/12/20 11/05/24 Unknown History magnesium L-lactate 84 mg 84 mg PO BID 10/12/20 11/05/24 Unknown History tablet,extended release L.acidoph,paracasei,B.animalis 10 1 cell PO DAILY 04/20/23 11/05/24 Unknown History billion cell capsule (Digestive Advantage Advanced Probiotic) acetaminophen 650 mg 650 mg PO Q12H PRN Pain 04/20/23 11/05/24 Unknown History tablet,extended release (Arthritis Pain Relief (acetaminophen) ER) herbal drugs (Super Energy Herbal 1 tablet PO AC 04/20/23 11/05/24 Unknown History Complex tablet) turmeric 100 mg-yanick 150 2 cap PO DAILY 04/20/23 11/05/24 Unknown History mg-olive 50 mg-oreg 150 mg-capryl capsule vit A 12,500 unit-zinc 12.5 1 cap PO DAILY 04/20/23 11/05/24 Unknown History ce-ijszzq-tmxuk-bilberry-herb #261 capsule (Lipotriad Vision Support) vit A-vit C-zinc-herb comp 15 1 mirian PO DAILY 04/20/23 11/05/24 Unknown History lozenges <Liyah Guevara - Last Filed: 11/26/24 18:39> Allergies/adverse reactions: Allergies Allergy/AdvReac Type Severity Reaction Status Date / Time Sulfa (Sulfonamide Allergy Unknown Rash Verified 11/26/24 15:11 Antibiotics) codeine AdvReac Unknown Nausea and Verified 11/26/24 15:11 Vomiting <Liyah Guevara - Last Filed: 11/26/24 18:39> Review of Systems Review of Systems: All systems reviewed & are unremarkable except as noted in HPI and below <Eloina Fernando APRN - Last Filed: 11/26/24 19:12> PMFSH Past Medical History Medical History: Medical History Stone in renal pelvis Acute pyelonephritis COVID-19 Cervicalgia Chronic rhinitis Essential (primary) hypertension Hypothyroidism, unspecified Major depress, part remis Migraine, unspecified, not intractable, without status migrainosus Osteoarthritis of 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 Palpitations Pure hypercholesterolemia Vitamin D deficiency <Liyah Guevara - Last Filed: 11/26/24 18:39> Family History Family History: Family History Sibling Family history of throat cancer Patient's brother is Carcinoma of colon Mother Patient's mother is Family history of congenital heart disease Carcinoma of colon Acute myocardial infarction Father Patient's father is Hypertension Family history of congenital heart disease Acute myocardial infarction Other Family history of cardiovascular disease <Liyah Guevara [employer] SUPERVISOR - Last Filed: 11/26/24 18:39> Social History Social History: Social History Smoking status: Never smoker Second hand tobacco smoke exposure: Yes Alcohol intake: never Substance use: never Substance use type: does not use Do You Feel Safe in your Home?: No Lack of Transportation: No Lack of Food: Never True Current Housing: I Have Housing Concerned About Future Housing: No Difficulty Paying Gas/Electric Bills: No Difficulty Paying for Meds: No Currently Unemployed: No Education: Associate Degree Difficulty w/ Childcare or Family Care: No Living arrangements: other Additional living arrangements comments: Independent living facilty Spiritual care concerns: No <Liyah KariPanfilo Guevara [employer] SUPERVISOR - Last Filed: 11/26/24 18:39> Exam Narrative: GENERAL: Well appearing, well-nourished, non-toxic, in no acute distress. HEAD: Normocephalic, approximately 1 cm L shaped laceration on the back of her head. NECK: Supple. No adenopathy, no masses. RESPIRATORY: Airway patent, respirations nonlabored. Clear to auscultation bilaterally, no rales, rhonchi, wheezing. CARDIOVASCULAR: Regular rate and rhythm without murmurs, rubs, or gallops. Peripheral pulses 2+ and equal bilaterally. ABDOMINAL: Soft, nontender, nondistended, no hepatosplenomegaly. Normoactive BS. MUSCULOSKELETAL: Moves all extremities. Strength/ROM intact without gross deformities. SKIN: Warm, dry, normal color. No rashes. NEURO: A&O X3. Speech clear. Cranial nerves II-XII grossly intact. No ataxic movements. PSYCHIATRIC: Appropriate mood and affect. Normal interaction. <Eloina Fernando, [employer] SUPERVISOR - Last Filed: 11/26/24 19:12> Course Vital Signs Vital signs: Vital Signs Temperature 36.7 C 11/26/24 15:43 Pulse Rate 97 11/26/24 15:43 Respiratory Rate 18 11/26/24 15:43 Blood Pressure 139/88 11/26/24 15:43 Pulse Oximetry 97 11/26/24 15:43 Oxygen Delivery Room Air 11/26/24 15:43 Temperature 36.9 C 11/26/24 18:12 Pulse Rate 92 11/26/24 18:12 Respiratory Rate 18 11/26/24 18:12 Blood Pressure 148/92 H 11/26/24 18:12 Pulse Oximetry 95 11/26/24 18:12 Oxygen Delivery Room Air 11/26/24 15:43 <Liyah Guevara, [employer] SUPERVISOR - Last Filed: 11/26/24 18:39> Vital Signs Temperature 36.7 C 11/26/24 15:43 Pulse Rate 97 11/26/24 15:43 Respiratory Rate 18 11/26/24 15:43 Blood Pressure 139/88 11/26/24 15:43 Pulse Oximetry 97 11/26/24 15:43 Oxygen Delivery Room Air 11/26/24 15:43 Temperature 36.9 C 11/26/24 18:12 Pulse Rate 92 11/26/24 18:12 Respiratory Rate 18 11/26/24 18:12 Blood Pressure 148/92 H 11/26/24 18:12 Pulse Oximetry 95 11/26/24 18:12 Oxygen Delivery Room Air 11/26/24 15:43 <Eloina Fernando, [employer]SEM[employer] SUPERVISOR - Last Filed: 11/26/24 19:12> Procedures Laceration Laceration 1: Date: 11/26/24 <Eloina Fernando [employer]SEM[employer] SUPERVISOR - Last Filed: 11/26/24 19:12> Time: 18:50 <Eloina Fernando AL[employer]SEM[employer] SUPERVISOR - Last Filed: 11/26/24 19:12> Site: scalp <Eloina Fernando [employer] ASSEM[employer] SUPERVISOR - Last Filed: 11/26/24 19:12> Size (cm): 1.5 <Eloina Fernnado [employer] ASSEM[employer] SUPERVISOR - Last Filed: 11/26/24 19:12> Description: irregular <Eloina Fernando [employer]SEM[employer] SUPERVISOR - Last Filed: 11/26/24 19:12> Depth: simple, single layer <Eloina Fernando AL[employer]AT ASSEMBL[employer] SUPERVISOR - Last Filed: 11/26/24 19:12> Pre-repair: irrigated extensively <Eloina Fernando [employer]AT ASSEM[employer] SUPERVISOR - Last Filed: 11/26/24 19:12> ====== Skin Level ======: Skin layer closed with: marin <Eloina Fernando AL[employer]SEMBL[employer] SUPERVISOR - Last Filed: 11/26/24 19:12> Number of sutures: 4 <Eloina Fernando, [employer]IN[employer] ASSEM[employer]Y SUPERVISOR - Last Filed: 11/26/24 19:12> ====== Subcutaneous Layer ======: ====== Muscle Layer ======: ====== Tendon Layer ======: Medical Decision Making MDM Narrative Medical decision making narrative: Labs Ordered: None necessary Imaging Ordered: Head CT, CT cervical spine scan Medications Ordered: Tylenol 1 gram p.o. Results: Patient's CT scans showed no acute abnormalities.Her cervical spine indicates Severe cervical spondylosis. Diagnosis: Concussion without loss of consciousness, laceration Patient Education/Shared MDM: Results of scans shared with patient. Patient denies any pain at time of examination. Her neurological exam is within normal limits. Four marin placed in the patient's head to help close her laceration. Patient tolerated procedure well. She was given strict return precaution and advised to follow-up her primary care provider in the next 2-3 days. Patient advised to return to the ER with increased signs of nausea, vomiting, mental status changes, severe headache. She was advised to allow want her to run over the stapled laceration, but not scrub the area. Patient may take Tylenol at home if she experiences any pain. Patient reports ?I do not want to stay in the hospital. She and her son verbalized understanding and are in agreement with plan. Vital signs stable at time of discharge. All questions answered. <Eloina Fernando, AL[employer]SEMBLY SUPERVISOR - Last Filed: 11/26/24 19:12> Differential Diagnosis Differential Diagnosis: Concussion with loss consciousness, scalp laceration, subdural hemorrhage <Eloina Fernando, [employer]SEM[employer] SUPERVISOR - Last Filed: 11/26/24 19:12> Vital Signs Vital Signs: Vital Signs Temperature 36.7 C 11/26/24 15:43 Pulse Rate 97 11/26/24 15:43 Respiratory Rate 18 11/26/24 15:43 Blood Pressure 139/88 11/26/24 15:43 Pulse Oximetry 97 11/26/24 15:43 Oxygen Delivery Room Air 11/26/24 15:43 Temperature 36.9 C 11/26/24 18:12 Pulse Rate 92 11/26/24 18:12 Respiratory Rate 18 11/26/24 18:12 Blood Pressure 148/92 H 11/26/24 18:12 Pulse Oximetry 95 11/26/24 18:12 Oxygen Delivery Room Air 11/26/24 15:43 <Liyah Guevara [employer]SEM[employer] SUPERVISOR - Last Filed: 11/26/24 18:39> Vital Signs Temperature 36.7 C 11/26/24 15:43 Pulse Rate 97 11/26/24 15:43 Respiratory Rate 18 11/26/24 15:43 Blood Pressure 139/88 11/26/24 15:43 Pulse Oximetry 97 11/26/24 15:43 Oxygen Delivery Room Air 11/26/24 15:43 Temperature 36.9 C 11/26/24 18:12 Pulse Rate 92 11/26/24 18:12 Respiratory Rate 18 11/26/24 18:12 Blood Pressure 148/92 H 11/26/24 18:12 Pulse Oximetry 95 11/26/24 18:12 Oxygen Delivery Room Air 11/26/24 15:43 <Eloina Fernando, [employer]SEM[employer] SUPERVISOR - Last Filed: 11/26/24 19:12> Imaging Data Attestation: I personally reviewed and interpreted this imaging study as follows: <Eloina Fernando, AL[employer]SEM[employer] SUPERVISOR - Last Filed: 11/26/24 19:12> Radiologist's impression: Impressions Head CT 11/26/24 17:58 IMPRESSION: 1. Normal aging brain. Cervical Spine CT 11/26/24 18:02 IMPRESSION: 1. No fracture. 2. Severe cervical spondylosis. <Eloina Fernando, AL[employer]SEM[employer] SUPERVISOR - Last Filed: 11/26/24 19:12> Discharge Plan Discharge Clinical Impression: Concussion without loss of consciousness, initial encounter, Laceration of scalp, Stapled skin wound <Liyah Guevara, AL[employer]SEMBL[employer] SUPERVISOR - Last Filed: 11/26/24 18:39> Patient Disposition: Home, Self-Care <Liyah Solano February, AL[employer] ASSEMBLY SUPERVISOR - Last Filed: 11/26/24 18:39> Condition: Stable <Liyah Guevara, ALUM[employer] ASSEMBLY SUPERVISOR - Last Filed: 11/26/24 18:39> Instructions: Antibiotic Form, Laceration (ED), Concussion (ED) <Liyah Solano February, [employer]SEMBLY SUPERVISOR - Last Filed: 11/26/24 18:39> Additional Instructions: Please return to the ER with an worsening symptoms. Follow-up with primary care provider in the next 2-3 days. Take all your regular medications as prescribed. <Liyah Guevara APRN - Last Filed: 11/26/24 18:39> Patient Language: Ukrainian <Liyah Guevara ALUMIN[employer] ASSEMBL[employer] SUPERVISOR - Last Filed: 11/26/24 18:39> Prescriptions: No Action cod liver oil Capsule 1 cap PO BID magnesium L-lactate 84 mg tablet extended release 84 mg PO BID Lipotriad Vision Support 12,500 unit- 12.5 mg capsule 1 cap PO DAILY Digestive Advantage Advanced 10 billion cell capsule 1 cell PO DAILY jlrfzkci-okqg-uvsva-oreg-capry 100 mg-150 mg- 50 mg-150 mg capsule 2 cap PO DAILY vit A-vit C-zinc-herb comp 15 Lozenge 1 mirian PO DAILY acetaminophen [Arthritis Pain Relief (acetam)] 650 mg tablet extended release 650 mg PO Q12H PRN (Reason: Pain) Super Energy Herbal Complex Tablet 1 tablet PO AC ergocalciferol (vitamin D2) 1,250 mcg (50,000 unit) capsule 50,000 unit PO MONTHLY Qty: 3 3RF metoprolol succinate 25 mg tablet extended release 24 hr See Rx Instructions .ROUTE .COMPLEX Qty: 90 3RF Dose Instruction: TAKE 1 TABLET DAILY Rx Instructions: TAKE 1 TABLET DAILY levothyroxine [Tirosint] 88 mcg capsule See Rx Instructions .ROUTE .COMPLEX Qty: 90 3RF Dose Instruction: TAKE 1 CAPSULE DAILY Rx Instructions: TAKE 1 CAPSULE DAILY escitalopram oxalate 10 mg tablet See Rx Instructions .ROUTE .COMPLEX Qty: 90 3RF Dose Instruction: TAKE 1 TABLET DAILY Rx Instructions: TAKE 1 TABLET DAILY <Liyah Guevara ALUMIN[employer] BOAT ASSEMBLY SUPERVISOR - Last Filed: 11/26/24 18:39> Follow-up/Referrals: Tahira Shabazz APRN [Primary Care Provider] - <Liyah Guevara ALUM[employer] ASSEMBL[employer] SUPERVISOR - Last Filed: 11/26/24 18:39>
[2024-11-26 18:12] VITALS: BP 148/92; PULSE 92; RESP 18; TEMP 36.9; O2SAT 95
[2024-11-26] MEDS: ACETAMINOPHEN 500 MG TABLET 1000 MG PO (18:17)
--- OUTSIDE RECORDS SUMMARY | 2024-11-26 19:26 | XMS_ITS | Continuity of Care Document ---
Author Organization [facility] [employer] Address [address] [place] [address] Phone Care Team Providers Care Portable Machine Sander Name Role Phone Kathy Atkins MD Unavailable Unavailable Procedures Procedure Date OFFICE/OUTPATIENT VISIT, EST SMEAR, WET MOUNT, SALINE/INK OFFICE/OUTPATIENT VISIT, EST Advance Directives Directive Yes / No Effective Date File Name No Information Encounters Encounter Description Practice Location Reason(s) For Visit Diagnoses Date Provider Providers Copied on Encounter OFFICE/OUTPAT IENT VISIT, [facility] [employer] [facility], [address], [place], [place], [id number], tel:[phone] [facility] No Information Wilbert Chavez. [address] [place], [address], [place]. tel:[phone] Referring Provider: Kathy Yrok, [address] [place], [address]. tel:[phone] OFFICE/OUTPAT IENT VISIT, [facility] [employer] [facility], [address], [place], [place], [id number], [place] tel:[phone] [facility] No Information Wilbert Chavez. [address] [place], [address], [place]. tel:[phone] Referring Provider: Kathy York, [address] [place], [address]. tel:[phone] Family History Family Member Type Diagnosis Age At Onset No Information Payers Payer name Insurance type Covered libertarian ID Authorcheyennea tibrian(s) Medicare NGS- [id number] For Life [facility] [id number] Social History Type Description Quantity Date Captured [...]
== END 2024-11-26 20:57 ==
LOC: ANHED 19:24
PROVIDERS: Emergency Provider Registered Nurse; PCP Nurse Practitioner Family
DX: S06.0X0A Concussion without loss of consciousness, initial encounter (principal); S01.01XA Laceration without foreign body of scalp, initial encounter; M47.812 Spondylosis without myelopathy or radiculopathy, cervical region; I10 Essential (primary) hypertension; E03.9 Hypothyroidism, unspecified; M19.90 Unspecified osteoarthritis, unspecified site; E78.5 Hyperlipidemia, unspecified; W01.0XXA Fall on same level from slipping, tripping and stumbling without subsequent striking against object, initial encounter
CPT/HCPCS: 12001; 70450; 72125; 99284; A9270